=== PATIENT | female | born 1970 | race Caucasian/White ===

== ENCOUNTER 2019-06-13 08:10 | Outpatient (CLI) | payer OTHER, SELFPAY ==
--- NOTE | ~2019-06-13 | MM_ITS ---
EXAMINATION: MM screening isidro BI w valdo HISTORY: Screening mammogram TECHNIQUE: Craniocaudal and mediolateral oblique 3-D tomosynthesis images were obtained and synthetic 2-D images were generated. CAD analysis was submitted and interpreted. COMPARISON: 06/10/2018, 10/27/2016, 01/20/2015 bilateral digital screening mammogram examinations BREAST PARENCHYMAL COMPOSITION: There are scattered areas of fibroglandular density. FINDINGS: Stable mild bilateral fibroglandular asymmetry. There is no evidence of suspicious mass, ca lcification, or architectural distortion to suggest malignancy in either breast. There has been no mooney spicious interval change. IMPRESSION: 1. No mammographic evidence of malignancy. 2. Recommend routine screening mammography in one year. BI-RADS Category 2: Benign finding(s). Reviewed, dictated and finalized at location A. ANENT WAVER
== END 2019-06-13 08:11 | disposition home or self-care (01) ==
PROVIDERS: PCP Family Medicine; Visit Provider Family Medicine
DX: Z12.31 Encounter for screening mammogram for malignant neoplasm of breast (principal)
CPT/HCPCS: 77063; 77067

== ENCOUNTER → 2020-08-17 13:50 | Outpatient (CLI) | payer OTHER, SELFPAY ==
--- NOTE | ~2020-08-17 | MR_ITS ---
EXAMINATION: MR cervical spine wo con DATE: 08/17/2020 14:32 INDICATION: Cervical radiculopathy. TECHNIQUE: Magnetic resonance imaging (MRI) of the cervical spine was performed without intravenous c ontrast. Sequences included sagittal T2-weighted FSE, sagittal STIR FSE, sagittal T1-weighted FSE, ax ial MERGE, and axial T2-weighted FSE. COMPARISON: None FINDINGS: There is 4 degrees dextrocurvature of cervical spine. There is hypolordosis of cervical spi ne. There is 2 mm retrolisthesis of C5 on C6. Vertebral body heights are normal. There is mildly decr eased disc height at C5-C6. The spinal cord signal intensity is normal. The following disc levels are specifically discussed: C2-C3: The disc does not extend beyond the endplate margin. There is no uncovertebral joint osteoarth ritis. There is severe bilateral facet joint osteoarthritis. There is mild bilateral neural foraminal stenosis. There is no central canal stenosis. C3-C4: The disc does not extend beyond the endplate margin. There is no uncovertebral joint osteoarth ritis. There is mild bilateral facet joint osteoarthritis. There is no neural foraminal stenosis. The re is no central canal stenosis. C4-C5: There is a central protrusion. There is no uncovertebral joint osteoarthritis. There is mild b ilateral facet joint osteoarthritis. There is mild left neural foraminal stenosis. There is mild cent ral canal stenosis. C5-C6: The disc is bulging. There is mild right and severe left uncovertebral joint osteoarthritis. T here is moderate right and severe left facet joint osteoarthritis. There is mild bilateral neural for aminal stenosis. There is mild central canal stenosis. C6-C7: The disc does not extend beyond the endplate margin. There is no uncovertebral joint osteoarth ritis. There is moderate right and severe left facet joint osteoarthritis. There is mild bilateral ne ural foraminal stenosis. There is no central canal stenosis. C7-T1: The disc does not extend beyond the endplate margin. There is no uncovertebral joint osteoarth ritis. There is mild right and moderate left facet joint osteoarthritis. There is mild left neural fo raminal stenosis. There is no central canal stenosis. IMPRESSION: 1. Mild cervical spondylosis. Reviewed, dictated and finalized at location B.
== END ==
PROVIDERS: PCP Family Medicine; Visit Provider Nurse Practitioner Family
DX: M47.23 Other spondylosis with radiculopathy, cervicothoracic region (principal); M48.03 Spinal stenosis, cervicothoracic region
CPT/HCPCS: 72141

== ENCOUNTER 2020-10-04 08:46 | Outpatient (CLI) | payer OTHER, SELFPAY ==
--- NOTE | ~2020-10-04 | MM_ITS ---
EXAMINATION: MM screening isidro BI w valdo HISTORY: Screening TECHNIQUE: Craniocaudal and mediolateral oblique 3-D tomosynthesis images were obtained and synthetic 2-D images were generated. CAD analysis was submitted and interpreted. COMPARISON: Comparison to multiple prior studies sequentially, with oldest reviewed study dated 06/27. BREAST PARENCHYMAL COMPOSITION: There are scattered areas of fibroglandular density. FINDINGS: There is a focal asymmetry medial aspect of the right breast on CC view. The left breast is stable without evidence for malignancy. IMPRESSION: 1. No focal right breast asymmetry on CC view. 2. Additional spot compression and mediolateral views with possible follow-up breast ultrasound recom mended. BI-RADS Category 0: Incomplete: Needs additional imaging evaluation. Reviewed, dictated and finalized at location A. IMPRESSION: 1. No focal right breast asymmetry on CC view. 2. Additional spot compression and mediolateral views with possible follow-up b reast ultrasound recommended. BI-RADS Category 0: Incomplete: Needs additional imaging evaluation.
== END 2020-10-04 08:47 | disposition home or self-care (01) ==
LOC: ANHIMG 08:51
PROVIDERS: PCP Family Medicine; Visit Provider Family Medicine
DX: Z12.31 Encounter for screening mammogram for malignant neoplasm of breast (principal); R92.8 Other abnormal and inconclusive findings on diagnostic imaging of breast
CPT/HCPCS: 77063; 77067

== ENCOUNTER 2020-11-01 11:21 | Outpatient (CLI) | payer OTHER, SELFPAY ==
--- NOTE | ~2020-11-01 | MM_ITS ---
EXAMINATION: MM diagnostic mammo unilat RT HISTORY: Focal asymmetry reported in medial aspect of right breast on screening craniocaudal view of 10/04/2020 TECHNIQUE: Additional full field ML and spot craniocaudal 3-D tomosynthesis images of the right breas t were performed and synthetic 2-D images were generated. CAD analysis was submitted and interpreted. COMPARISON: 09/26/2020, 06/13/2019, 06/2018, 10/27/2016bilateral digital screening mammogram examinations FINDINGS: No suspicious mass, architectural distortion or suspicious new or enlarging opacities evide nt. IMPRESSION: 1. No mammographic evidence of malignancy. Stable right asymmetric fibroglandular stroma 2. Routine annual mammographic screening is recommended. BI-RADS Category 2: Benign finding(s). Reviewed, dictated and finalized at location A. IMPRESSION: 1. No mammographic evidence of malignancy. Stable right asymmetric fibroglandul ar stroma 2. Routine annual mammographic screening is recommended. BI-RADS Category 2: Benign finding(s).
== END 2020-11-01 11:22 | disposition home or self-care (01) ==
LOC: ANHIMG 11:25
PROVIDERS: PCP Family Medicine; Referring Provider Nurse Practitioner Obstetrics & Gynecology; Visit Provider Family Medicine
DX: R92.8 Other abnormal and inconclusive findings on diagnostic imaging of breast (principal)
CPT/HCPCS: 77065

== ENCOUNTER 2022-07-17 14:52 | Outpatient (CLI) | payer OTHER, SELFPAY ==
--- NOTE | ~2022-07-17 | MM_ITS ---
EXAMINATION: MM screening isidro BI w valdo HISTORY: Screening mammogram TECHNIQUE: Craniocaudal and mediolateral oblique 3-D tomosynthesis images were obtained and synthetic 2-D images were generated. CAD analysis was submitted and interpreted. COMPARISON: 11/01/2020 diagnostic right mammogram 09/26/2020, 06/13/2019, 06/2018 bilateral screening mammogram examinations BREAST PARENCHYMAL COMPOSITION: There are scattered areas of fibroglandular density. FINDINGS: There is no evidence of suspicious mass, calcification, or architectural distortion to sugg est malignancy in either breast. There has been no suspicious interval change. IMPRESSION: 1. No mammographic evidence of malignancy. 2. Recommend routine screening mammography in one year. BI-RADS Category 1: Negative Reviewed, dictated and finalized at location A.
== END 2022-07-17 14:53 | disposition home or self-care (01) ==
LOC: ANHIMG 14:55
PROVIDERS: PCP Family Medicine; Visit Provider Nurse Practitioner Obstetrics & Gynecology
DX: Z12.31 Encounter for screening mammogram for malignant neoplasm of breast (principal)
CPT/HCPCS: 77063; 77067

== ENCOUNTER 2023-03-15 05:58 | Day surgery (SDC) | payer OTHER, SELFPAY ==
[2023-02-09 09:03] VITALS: BMI 26.5
[2023-02-27 12:25] VITALS: BMI 26.4
--- NOTE | 2023-03-14 16:59 | WPDANESEPPF ---
Anes - Initial Pre Proc Eval Procedure: Operation Date: 03/15/23 07:30 Proposed Procedures p Screening Colonoscopy - Radu Servin MD Date/Time: 03/14/23 16:59 Surgeon: Radu Servin MD Pre Op Diagnosis: Neoplasm Screening Patient Data Age: 52 Gender: F Height: 1.65 m Weight: 72 kg Allergies Allergy/AdvReac Type Severity Reaction Status Date / Time No Known Allergies Allergy Verified 03/15/23 06:20 Home Medications Medication Instructions Recorded Confirmed Type calcium carbonate 600 mg calcium 600 mg PO DAILY 10/04/22 03/15/23 History (1,500 mg) tablet (Calcium) cholecalciferol (vitamin D3) 25 25 mcg PO DAILY 10/04/22 03/15/23 History mcg (1,000 unit) capsule multivitamin 1 tablet PO DAILY 10/04/22 03/15/23 History Patient hx anesthesia problems: none Family hx anesthesia problems: none Results Review: All pre-operative results and documents have been reviewed as part of the pre-operative evaluation. PENDING SALE TO [facility] Past Medical History Medical History (Updated 07/17/22 @ 17:18 by Иван Oh MD) Abnormal mammogram of right breast (~10/04/20) asymmetric focus right breast on 10/04/2020 Abnormal x-ray of cervical spine Anxiety B12 deficiency BMI 26.0-26.9,adult Breast cancer screening normal mammogram 07/17/2022. Cervical radicular pain Colon cancer screening Hyperlipidemia UTI (urinary tract infection) Family History Family History Father Acute myocardial infarction, Onset Age: 68 Social History Social History Smoking status: Never smoker Alcohol intake: current Drinks per week: 2 Substance use: never Substance use type: does not use Lack of Transportation: No Lack of Food: Never True Current Housing: I Have Housing Concerned About Future Housing: No Difficulty Paying Gas/Electric Bills: No Difficulty Paying for Meds: No Currently Unemployed: No Education: Master's Degree or Higher Difficulty w/ Childcare or Family Care: No Living arrangements: with family Spiritual care concerns: No Anes - Eval Final PreProcedure Day of Procedure 12/06/23 16:59 Patient weight: overweight Heart: regular rate and rhythm Lungs: clear to auscultation Airway: Mallampati scale class II Neurological: alert and oriented Last oral intake: >/= 8 hours ASA classification: II Emergent: no Anesthetic plan: proceed Anesthesia type and monitoring: general GIVS and standard monitoring Results Review: All pre-operative results and documents have been reviewed as part of the pre-operative evaluation. Informed Consent: The patient's anesthetic plan and its attendant risks and benefits were discussed with the patient/family/POA. Questions were solicited and answers provided to the satisfaction of the patient/family/POA.
[2023-03-15 06:22] VITALS: BP 140/96; PULSE 98; RESP 16; TEMP 36.6; O2SAT 98; BMI 27.1
[2023-03-15] MEDS: LACTATED RINGERS 1,000 ML 150 ML IV CONT (06:33)
--- NOTE | 2023-03-15 07:26 | PM.HPGS ---
History of Present Illness History of Present Illness Consent: Risks, benefits, and alternatives have been discussed and questions answered. Patient agrees to proceed with procedure. Chief complaint: Neoplasm Screening Narrative: Jaja Pelayo is a 52 year old female here for first screening colonoscopy Review of Systems Constitutional: Constitutional: Denies headache(s) and Denies weakness Eyes: Eyes: Denies blurry vision ENT: Reports Normal hearing present, Denies headache(s) and Denies neck pain Cardiovascular: Cardiovascular: Denies chest pain and Denies dyspnea Respiratory: Respiratory: Denies dyspnea Gastrointestinal: Gastrointestinal: Reports no additional gastrointestinal complaints Genitourinary: Genitourinary: Denies dysuria Musculoskeletal: Musculoskeletal: Denies neck pain Integumentary/Breasts: Skin/Breast: Denies dry skin Neurologic: Reports Normal hearing present, Denies headache(s) and Denies weakness Psychiatric: Psychiatric: Denies anxiety Endocrine: Endocrine: Denies change in body appearance Hematologic/Lymphatic: Hematologic/Lymphatic: Denies easy bleeding Allergic/Immunologic: Allergic/Immunologic: Denies urticaria PMFSH Past Medical History Medical History (Updated 07/17/22 @ 17:18 by Иван Oh MD) Abnormal mammogram of right breast (~10/04/20) asymmetric focus right breast on 10/04/2020 Abnormal x-ray of cervical spine Anxiety B12 deficiency BMI 26.0-26.9,adult Breast cancer screening normal mammogram 07/17/2022. Cervical radicular pain Colon cancer screening Hyperlipidemia UTI (urinary tract infection) Family History Family History Father Acute myocardial infarction, Onset Age: 68 Social History Social History Smoking status: Never smoker Alcohol intake: current Drinks per week: 2 Substance use: never Substance use type: does not use Lack of Transportation: No Lack of Food: Never True Current Housing: I Have Housing Concerned About Future Housing: No Difficulty Paying Gas/Electric Bills: No Difficulty Paying for Meds: No Currently Unemployed: No Education: Master's Degree or Higher Difficulty w/ Childcare or Family Care: No Living arrangements: with family Spiritual care concerns: No Meds Home Medications and Allergies Home Medications Medication Instructions Recorded Confirmed Type calcium carbonate 600 mg calcium 600 mg PO DAILY 10/04/22 03/15/23 History (1,500 mg) tablet (Calcium) cholecalciferol (vitamin D3) 25 25 mcg PO DAILY 10/04/22 03/15/23 History mcg (1,000 unit) capsule multivitamin 1 tablet PO DAILY 10/04/22 03/15/23 History Allergies Allergy/AdvReac Type Severity Reaction Status Date / Time No Known Allergies Allergy Verified 03/15/23 06:20 Vital Signs Vital Signs - 24 hr 03/15/23 06:22 Temperature 97.8 F Pulse Rate 98 Respiratory Rate 16 Blood Pressure 140/96 H Pulse Oximetry 98 Oxygen Delivery Room Air Exam Const: General: comfortable and no acute distress HENMT: Face/Nose/Sinus: Normal nares present Eyes: General: appearance normal, both eyes and all related structures Neck: Neck: no JVD Resp: Auscultation: clear to auscultation bilaterally Cardio: Rate: regular rate Rhythm: regular rhythm GI: Inspection: non-distended GI Palp: Yes Soft to palpation Skin: General skin exam: normal color Neuro: General: gait normal Speech: normal speech Extrem: General: normal to inspection Psych: Mental Status: mental status grossly normal Assessment and Plan Assessment and plan (1) Colon cancer screening: Code(s): Z12.11 - Encounter for screening for malignant neoplasm of colon Status: Acute Assessment and Plan: colonoscopy
[2023-03-15 07:44] VITALS: BP 110/64; PULSE 81; RESP 16; O2SAT 96
[2023-03-15 07:54] VITALS: BP 103/71; PULSE 83; RESP 18; O2SAT 97
[2023-03-15 08:04] VITALS: BP 102/78; PULSE 75; RESP 18; O2SAT 98
--- NOTE | 2023-03-15 12:20 | WPDANESPN ---
Anes - Prog Note Post-Op Date/Time: 03/15/23 12:20 Cardiovascular status: normal Respiratory status: normal Airway patency: baseline Mental status: baseline Post-Op hydration status: normal Vital Signs: Last Vital Signs Temp 36.6 C 03/15/23 06:22 Pulse 75 03/15/23 08:04 Resp 18 03/15/23 08:04 BP 102/78 03/15/23 08:04 Pulse Ox 98 03/15/23 08:04 O2 Del Method Room Air 03/15/23 08:04 Pain Score (VAS): 0 I/O: Intake & Output 03/14/23 03/15/23 03/15/23 23:59 07:59 15:59 Intake Total 400 Balance 400 Post-procedural complaints: none Patient Feedback: Patient satisfied with anesthetic care. Other Findings: Patient vital signs back to baseline. Patient denies nausea and vomiting. Patient's pain under control. Patient OK for discharge.
== END 2023-03-15 08:16 | disposition home or self-care (01) ==
PROVIDERS: PCP Family Medicine; Visit Provider Internal Medicine Gastroenterology
PROC: 0DJD8ZZ Inspection of Lower Intestinal Tract, Via Natural or Artificial Opening Endoscopic (ICD-10-PCS; CPT 45378; principal; 2023-03-15 07:30)
DX: Z12.11 Encounter for screening for malignant neoplasm of colon (principal)
CPT/HCPCS: 45378

== ENCOUNTER 2023-04-25 19:34 | Emergency (ER) | payer OTHER, SELFPAY ==
--- NOTE | 2023-04-25 19:36 | ED.URI ---
HPI - URI/Sore Throat General Chief Complaint: Upper Respiratory Infection Stated Complaint: COUGH Time Seen by Provider: 04/25/23 19:36 Source: patient and RN notes reviewed History of Present Illness HPI Narrative: Patient is a 52-year-old female who presents to urgent care with complaints of cough, congestion, runny nose. Patient states her symptoms started last with a splitting headache which since improved. Patient states that over the last 24 hours she developed a cough. Denies any shortness of breath, wheezing or productive cough. States that her throat is only sore from coughing. Denies any fever, ear pain, nausea, vomiting. Patient has been taking Tylenol [id number] but nothing for the cough. No other acute complaints. No acute distress noted. Patient aware of the plan care. Some parts of this dictation were generated by voice recognition software and may contain typographical and/or grammatical inaccuracies. Related Data Home Medications Medication Instructions Recorded Confirmed calcium carbonate 600 mg calcium 600 mg PO DAILY 10/04/22 04/25/23 (1,500 mg) tablet (Calcium) cholecalciferol (vitamin D3) 25 25 mcg PO DAILY 10/04/22 04/25/23 mcg (1,000 unit) capsule multivitamin 1 tablet PO DAILY 10/04/22 04/25/23 Allergies Allergy/AdvReac Type Severity Reaction Status Date / Time No Known Allergies Allergy Verified 04/25/23 19:36 Review of Systems Review of Systems: CONSTITUTIONAL: Denies fever, chills, or sweats. EYES: Denies visual changes, redness, or discharge. ENT: Reports rhinorrhea and postnasal drainage CARDIOVASCULAR: Denies chest pain, palpitations, or edema. RESPIRATORY: Reports of harsh nonproductive cough without dyspnea GASTROINTESTINAL: Denies abdominal pain, nausea, vomiting, or diarrhea. GENITOURINARY: Denies dysuria or hematuria. SKIN: Denies rash or itching. MUSCULOSKELETAL: Denies back pain, joint pain, or myalgia. NEUROLOGIC: Denies headache, numbness, or weakness. All other systems reviewed are negative, except as documented in HPI. [facility] Past Medical History Medical History (Updated 04/25/23 @ 19:47 by RACHID Palacios) Abnormal mammogram of right breast (~10/04/20) asymmetric focus right breast on 10/04/2020 Abnormal x-ray of cervical spine Anxiety B12 deficiency BMI 26.0-26.9,adult Breast cancer screening normal mammogram 07/17/2022. Cervical radicular pain Colon cancer screening (03/15/23) normal colonoscopy 03/15/2023 with recheck in 10 years. Hyperlipidemia UTI (urinary tract infection) Family History Family History Father Acute myocardial infarction, Onset Age: 68 Social History Social History Smoking status: Never smoker Alcohol intake: current Drinks per week: 2 Substance use: never Substance use type: does not use Lack of Transportation: No Lack of Food: Never True Current Housing: I Have Housing Concerned About Future Housing: No Difficulty Paying Gas/Electric Bills: No Difficulty Paying for Meds: No Currently Unemployed: No Education: Master's Degree or Higher Difficulty w/ Childcare or Family Care: No Living arrangements: with family Spiritual care concerns: No Comments At the time of my signature, I reviewed and agree with the nursing past medical, surgical, social, and family history. There is no relevant family history pertinent to the patient complaint. Exam Narrative: GENERAL: This is a well-nourished, well-developed patient, in no apparent distress. HEAD: normocephalic, atraumatic. EYES: PERRL. Sclera clear/white. Vision is grossly intact. EARS: External ears normal, auditory canals clear and without drainage, TMs normal without perforation. Hearing grossly intact. NOSE: External nose normal with no obvious nasal discharge, nares without redness, no rhin
[2023-04-25 19:43] VITALS: BP 132/68; PULSE 107; RESP 16; TEMP 36.5; O2SAT 98
== END 2023-04-25 19:47 | disposition home or self-care (01) ==
PROVIDERS: Emergency Provider Nurse Practitioner Family; PCP Nurse Practitioner Family
DX: R05.1 Acute cough (principal); E78.5 Hyperlipidemia, unspecified
CPT/HCPCS: 99213; G0463

== ENCOUNTER 2023-05-24 12:34 | Emergency (ER) | payer OTHER, SELFPAY ==
--- NOTE | ~2023-05-24 | XR_ITS ---
XR toe 1st RT min 2V DATE: 05/24/2023 12:58 INDICATION: Right first digit pain after being bent back 7 days ago TECHNIQUE: 3 views of right great COMPARISON: None FINDINGS: There is a linear oblique lucency consistent with recent fracture along the medial metaphys eal area and extending at least to the central physis area of the distal phalanx. No other fracture or dislocation is detected. Moderate osteoarthritic change at the first metatarsophalangeal joint. IMPRESSION: Linear oblique nondisplaced metaphyseal fracture of the distal phalanx Reviewed, dictated and finalized at location L. ER TENDER IMPRESSION: Linear oblique nondisplaced metaphyseal fracture of the distal phal anx
[2023-05-24 12:45] VITALS: BP 124/70; PULSE 69; RESP 18; TEMP 36.3; O2SAT 98
--- NOTE | 2023-05-24 12:55 | ED.LOWEXIN ---
HPI - Extremity Injury (Lower) General Chief Complaint: Extremity Injury, Lower Stated Complaint: rt great toe injury Time Seen by Provider: 05/24/23 12:55 Source: patient, RN notes reviewed and old records reviewed Mode of arrival: ambulatory Limitations: no limitations History of Present Illness HPI Narrative: 52 year old female who [facility] with complaints of injury to right great toe when she was running up the stairs and she bent her right great toe backwards 7 days ago. Patient reports that she has some increase in discomfort to tissue area under nail to mid dorsal aspect of right great toe with some redness noted. Patient reports that MD complaint: other (right great toe injury) Onset (ago): week(s) Severity scale (1-10): 8 Related Data Home Medications Medication Instructions Recorded Confirmed calcium carbonate 600 mg calcium 600 mg PO DAILY 10/04/22 04/25/23 (1,500 mg) tablet (Calcium) cholecalciferol (vitamin D3) 25 25 mcg PO DAILY 10/04/22 04/25/23 mcg (1,000 unit) capsule multivitamin 1 tablet PO DAILY 10/04/22 04/25/23 Allergies Allergy/AdvReac Type Severity Reaction Status Date / Time No Known Allergies Allergy Verified 04/25/23 19:36 Review of Systems Review of Systems: CONSTITUTIONAL: Denies fever, chills, or sweats. EYES: Denies visual changes, redness, or discharge. ENT: Denies rhinorrhea, congestion, sore throat, or otalgia. CARDIOVASCULAR: Denies chest pain, palpitations, or edema. RESPIRATORY: Denies cough or dyspnea. GASTROINTESTINAL: Denies abdominal pain, nausea, vomiting, or diarrhea. GENITOURINARY: Denies dysuria or hematuria. SKIN: Denies rash or itching. MUSCULOSKELETAL: Denies back pain, reports pain to the right great toe with swelling and bruising from injury one week ago, or myalgia. NEUROLOGIC: Denies headache, numbness, or weakness. PSYCHIATRIC: Denies anxiety or depression. All systems reviewed & are unremarkable except as noted in HPI and below PMFSH Past Medical History Medical History (Updated 05/24/23 @ 13:24 by Shi Tello NP) Abnormal mammogram of right breast (~10/04/20) asymmetric focus right breast on 10/04/2020 Abnormal x-ray of cervical spine Anxiety B12 deficiency BMI 26.0-26.9,adult Breast cancer screening normal mammogram 07/17/2022. Cervical radicular pain Colon cancer screening (03/15/23) normal colonoscopy 03/15/2023 with recheck in 10 years. Hyperlipidemia UTI (urinary tract infection) Family History Family History Father Acute myocardial infarction, Onset Age: 68 Social History Social History Smoking status: Never smoker Alcohol intake: current Drinks per week: 2 Substance use: never Substance use type: does not use Lack of Transportation: No Lack of Food: Never True Current Housing: I Have Housing Concerned About Future Housing: No Difficulty Paying Gas/Electric Bills: No Difficulty Paying for Meds: No Currently Unemployed: No Education: Master's Degree or Higher Difficulty w/ Childcare or Family Care: No Living arrangements: with family Spiritual care concerns: No Comments At time of signature, agree with nursing past medical, surgical, social and family history. There is no relevant family history pertinent to the presenting complaint Exam Narrative: GENERAL: Well-appearing, well-nourished, and in no acute distress. HEAD: Normocephalic, atraumatic. EYES: PERRLA and EOMI. ENT: Nares clear, no rhinorrhea or epistaxis. Mucous membranes moist.TM's normal throat pink with no swelling NECK: Supple.no lymphadenopathy CHEST: Clear to auscultation. No respiratory distress. SAO2 98% on room air HEART: Regular rate and rhythm. No murmur heard. Normal peripheral pulses. ABDOMEN: Soft, nontender, nondistended, normal active bowel sounds. EXTREMITIES: Normal range
== END 2023-05-24 13:45 | disposition home or self-care (01) ==
PROVIDERS: Emergency Provider Registered Nurse; PCP Family Medicine
DX: S92.424A Nondisplaced fracture of distal phalanx of right great toe, initial encounter for closed fracture (principal); X50.9XXA Other and unspecified overexertion or strenuous movements or postures, initial encounter; E78.5 Hyperlipidemia, unspecified
CPT/HCPCS: 73660; 99214; G0463

== ENCOUNTER 2024-02-14 16:25 | Outpatient (CLI) | payer OTHER, SELFPAY ==
--- NOTE | ~2024-02-14 | MM_ITS ---
EXAMINATION: MM screening isidro BI w valdo HISTORY: Screening TECHNIQUE: Craniocaudal and mediolateral oblique 3-D tomosynthesis images were obtained and synthetic 2-D images were generated. CAD analysis was submitted and interpreted. COMPARISON: Comparison to multiple prior studies sequentially, with oldest reviewed study dated 10/27. BREAST PARENCHYMAL COMPOSITION: Not dense: There are scattered areas of fibroglandular density. FINDINGS: There is no evidence of suspicious mass, calcification, or architectural distortion to sugg est malignancy in either breast. There has been no suspicious interval change. IMPRESSION: 1. No mammographic evidence of malignancy. 2. Recommend routine screening mammography in one year. BI-RADS Category 1: Negative Reviewed, dictated and finalized at location B. SUPPRESSION CAPTAIN
== END 2024-02-14 16:26 | disposition home or self-care (01) ==
PROVIDERS: PCP Family Medicine; Visit Provider Nurse Practitioner Family
DX: Z12.31 Encounter for screening mammogram for malignant neoplasm of breast (principal)
CPT/HCPCS: 77063; 77067

== ENCOUNTER → 2025-01-07 12:03 | Outpatient (CLI) | payer OTHER, SELFPAY ==
--- NOTE | ~2025-01-07 | XR_ITS ---
EXAMINATION: XR hip RT 2V w AP pelvis, 01/07/2025 12:54 CDT HISTORY: R10.31 - Right lower quadrant pain/numbness 1 month COMPARISON: No comparisons available. Findings: No acute fracture or malalignment. No significant degenerative changes. Soft tissues unremarkable. Impression: No acute fracture or malalignment. Reviewed, dictated and finalized at location P. Impression: No acute fracture or malalignment.
== END ==
LOC: EXPTRAD 12:06
PROVIDERS: PCP Nurse Practitioner Family; Referring Provider Nurse Practitioner Family; Visit Provider Nurse Practitioner Family
DX: R10.31 Right lower quadrant pain (principal)
CPT/HCPCS: 73502

== ENCOUNTER 2025-01-21 10:43 | Outpatient (CLI) | payer OTHER, SELFPAY ==
--- NOTE | ~2025-01-21 | MR_ITS ---
EXAMINATION: MR lumbar spine wo con DATE: 01/21/2025 11:15 INDICATION: Low back pain, unspecified. Right leg numbness and pain. TECHNIQUE: Magnetic resonance imaging (MRI) of the lumbar spine was performed without intravenous contrast. Sequences included sagittal T2-weighted FSE, sagittal T2-weighted FS FSE, sagittal T1-weighted FSE, and axial T2-weighted FSE. COMPARISON: None FINDINGS: There is 7 degrees levocurvature of lumbar spine. There is 3 mm retrolisthesis of L3 on L4. Vertebral body heights are normal. There is mildly decreased disc height from L1-L2 through L4-L5 and severely decreased disc height at L5-S1. The distal spinal cord signal intensity is normal. The conus medullaris is at L1. The following disc levels are specifically discussed: L1-L2: The disc is bulging. There is mild bilateral facet joint osteoarthritis. There is no neural foraminal stenosis. There is mild central canal stenosis. L2-L3: The disc is bulging. There is moderate bilateral facet joint osteoarthritis. There is mild bilateral neural foraminal stenosis. There is mild central canal stenosis. L3-L4: The disc is bulging. There is severe bilateral facet joint osteoarthritis. There is mild bilateral neural foraminal stenosis. There is mild central canal stenosis. L4-L5: The disc is bulging and has an annular fissure. There is severe bilateral facet joint osteoarthritis. There is mild bilateral neural foraminal stenosis. There is mild central canal stenosis. L5-S1: The disc is bulging and has an annular fissure. There is moderate bilateral facet joint osteoarthritis. There is moderate bilateral neural foraminal stenosis. There is mild central canal stenosis. IMPRESSION: 1. Severe lower lumbar spondylosis. Reviewed, dictated and finalized at location E.
== END 2025-01-21 10:44 | disposition home or self-care (01) ==
PROVIDERS: PCP Nurse Practitioner Family; Visit Provider Nurse Practitioner Family
DX: M47.816 Spondylosis without myelopathy or radiculopathy, lumbar region (principal); M79.604 Pain in right leg; R29.898 Other symptoms and signs involving the musculoskeletal system; R20.0 Anesthesia of skin; M54.31 Sciatica, right side
CPT/HCPCS: 72148

== ENCOUNTER 2025-02-19 15:54 | Outpatient (CLI) | payer OTHER, SELFPAY ==
--- OUTSIDE RECORDS SUMMARY | 2023-09-22 15:30 | XMS_ITS ---
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 Иван Oh Primary Care Provider Adrian García Unavailable [phone] ZZ-Migration, Provider Unavailable Unavailab le [facility] VISIT [facility] Encounter Medications Medication SIG (Take, Route, Frequency, Duration) Notes Start Date End Date Status Auvi-Q 0.3 MG/0.3ML 0.3 mg intramuscularly once; Duration: 1 dose(s), may repeat for recurrent or persistent symptoms after 10 minutes Active NASONEX 50 MCG/INH 2 SPRAY(S), AVOID NASAL SEPTUM EACH NOSTRIL ONCE A DAY; Duration: 30 DAY(S) *Please review for potential replacement for e-prescription and drug interaction check* Not-Taking Systane Preservative Free - 1 GTT IN EACH EYE 2 TIMES A DAY; Duration: 30 DAY(S) *Please review and pick correct strength-formula tion from [employer]pan options. If intended option is not shown, discontinue and re-order from Quick Search* Active PATANOL 0.1% 1 GTT IN EACH AFFECTED EYE 2 TIMES A DAY; Duration: 7 DAY(S) *Please review for potential replacement for e-prescription and drug interaction check* Not-Taking Cetirizine HCl 10 MG 1 tab(s) orally once a day; Duration: 0 Not-Taking NASAL WASHES N/A DIRECTED INTRANASALLY NEEDED; Duration: 30 *Please review for potential replacement for e-prescription and drug interaction check* Active ZyrTEC Allergy 10 MG 1 tab(s) orally once a day Active Pataday 0.2 % 1 gtt in each affected eye once a day; Duration: 10 day(s) Active Encounters Encounter Location Date Provider Diagnosis [address] [id number] 09/22/2023 Provider Edwin Anaphylactic reaction due to unspecified food, initial encounter T78.00XA ; Allergic rhinitis due to pollen J30.1 and Other chronic allergic conjunctivitis H10.45 Assessments Encounter Date Diagnosis (ICD Code) Assessment Notes Treatment Notes Treatment Clinical Notes Section Notes 09/22/2023 Anaphylactic reaction due to unspecified food, initial encounter (ICD-10 - T78.00XA) 09/22/2023 Allergic rhinitis due to pollen (ICD-10 - J30.1) 09/22/2023 Other chronic allergic conjunctivitis (ICD-10 - H10.45) Plan Of Treatment Medication Medication Name Sig Start Date Stop Date Notes Auvi-Q 0.3 MG/0.3ML 0.3 mg intramuscular ly once; Duration: 1 dose(s), may repeat for recurrent or persistent symptoms after 10 minutes Systane Preservative Free - 1 GTT IN EACH EYE 2 TIMES A DAY; Duration: 30 DAY(S) *Please review and pick correct strength-formulatio n from Medispan options. If intended option is not shown, discontinue and re-order from Quick Search* NASAL WASHES N/A DIRECTED INTRANAS ALLY NEEDED; Duration: 30 *Please review f or potential replacement for e-prescription and drug interaction check* ZyrTEC Allergy 10 MG 1 tab(s) orally onc e a day Pataday 0.2 % 1 gtt in each affect ed eye once a day; Duration: 10 day(s) Progress Notes * Jaja AVERYDOB:1970 (54 yo F)Acc No.[id number]:09/22/2023 Patient: Jaja GONZALES Provider: Freddy Price :1970 A ge:53 Y S ex:Female Date:09/22/2023 Address:[address] [place], [place] [id number] Pcp:Dr. Иван Oh Subjective: * Chief Complaints: * 1 . [facility]. * Medical History: * Medications: N ot-Taking/PRN Cetirizine HCl 10 MG Tablet 1 tab(s) orally once a day , Not- Taking/PRN PATANOL 0.1% SOLUTION 1 GTT IN EACH AFFECTED EYE 2 TIMES A DAY , Notes to Pharmacist: *Please review for potential replacement for e-prescription and drug interaction check*, Not-Taking/PRN NASONEX 50 MCG/INH NASAL INHALER 2 SPRAY(S), AVOID NASAL SEPTUM EACH NOSTRIL ONCE A DAY , Notes to Pharmacist: *Please review for potential replacement for e-prescription and drug interaction check* Objective: * Vitals: Assessment: * Assessment: 1. A naphylactic reaction due to unspecified food, initial encounter - T78.00XA (Primary) ? 2 . A llergic rhinitis due to pollen - J30.1 3 . O ther chronic allergic conjunctivitis - H10.45 Plan: * Treatment: 2. A llergic rhinitis due to pollen Start ZyrTEC Allergy Tablet, 10 MG, 1 tab(s), orally, once a day; C ontinue NASAL WASHES 1 QUART OF STERILIZED TAP WATER OR DISTILLED WATER, 1 TSP NACL, 1 PINCH OF BAKING SODA, N/A, DIRECTED, INTRANASALLY, NEEDED, 30, QS, Refills PRN, Notes to Pharmacist: *Please review for potential replacement for e-prescription and drug interaction check*. 3. O ther chronic allergic conjunctivitis Continue Pataday Solution, 0.2 %, 1 gtt, in each affected eye, once a day, 10 day(s); C ontinue Systane Preservative Free SOLUTION, -, 1 GTT, IN EACH EYE, 2 TIMES A DAY, 30 DAY(S), Notes to Pharmacist: *Please review and pick correct strength-formulation from [facility] options. If intended option is not shown, discontinue and re-order from Quick Search*. * Billing Information: * Visit Code: * Procedure Codes: * Electronic signature of Hannah FELIX-Migration on 02/19/2025 at 03:57 PM LARD RENDERER Sign off status: Pending * Provider: Freddy gibson Migration Date: 0 09/22/2023 Generated for Gabino eastman/Lexy/Jay Jay on: 1 04/21/2024 03:57 PM LARD RENDERER
--- OUTSIDE RECORDS SUMMARY | 2024-08-13 07:00 | XMS_ITS ---
Author Organization [facility] Address [address] [place], [place] [id number] Care Team Providers Care Chicken Picker Name Role Phone CHARY SINGLETARY Unavailable [phone] Иван Oh Unavailable Unavailable Allergies No Known Allergies REASON FOR VISIT dropped rock on foot, bunion Medications Medication SIG (Take, Route, Frequency, Duration) Notes Start Date End Date Status Simvastatin 10 MG Tablet 2 tablets in th e evening Orally Once a day Active Montelukast Sodium 10 MG Tablet 1 tablet Orally Once a day Active Social History Tobacco Use: Social History Observation Description Date Details (start date - stop date) Never Smoker NA - NA Social History Tobacco Use: Social Info Question Answer Notes Tobacco Control (Standard) Tobacco use: Nonsmoker Vital Signs Height 65 in 08/13/2024 Weight 157 lbs 08/13/2024 BMI 26.12 kg/m2 08/13/2024 Height-cm 165.1 cm 08/13/2024 Weight-kg 71.21 kg 08/13/2024 Encounters Encounter Location Date Provider Diagnosis [facility] [address] [place], [place] [id number] 08/13/2024 CHARY SINGLETARY Nondisplaced fracture of first metatarsal bone, right foot, initial encounter for closed fracture S92.314A ; Hallux valgus (acquired), right foot M20.11 and Pain in right foot M79.671 Assessments Encounter Date Diagnosis (ICD Code) Assessment Notes Treatment Notes Treatment Clinical Notes Section Notes 08/13/2024 Nondisplaced fracture of first metatarsal bone, right foot, initial encounter for closed fracture (ICD-10 - S92.314A) xrays reviewed. New xrays in 3 weeks to assess healing. Fracture Care: I discussed the nature and etiology of the injury to the patient and answered all questions. I discussed rest, immobilization, and time frame for healing. I explained that lack of compliance can lead to delayed healing or nonunion. She will reduce her walking schedule and wear her Asics or a supportive shoe and will come back to purchase a fracture shoe if pain and inflammation is not resolving. 08/13/2024 Hallux valgus (acquired), right foot (ICD-10 - M20.11) Bunion: Discussed various treatments with the patient regarding hallux abducto valgus deformity. Discussed conservative care consisting of padding, wider shoes, anti-inflammator ies, and orthotics. Discussed surgical treatment options as well. Reviewed xrays. 08/13/2024 Pain in right foot (ICD-10 - M79.671) CERON Protect, Rest, Ice, Compress, Elevate 3-6 weeks Patient was instructed to try an OTC topical pain reliever/anti-in flammatory such as Voltaren Gel, Aspercreme with Lidocaine, or Biofreeze etc over the affected areas. Spot test on hand or somewhere visible prior to starting to watch for possible rash/allergic reaction Plan Of Treatment Treatment Notes Assessment Notes Nondisplaced fracture of fir st metatarsal bone, right foot, initial encounter for closed fracture xrays reviewed. New xrays in 3 weeks to assess healing. Fracture Care: I discussed the nature and etiology of the injury to the patient and answered all questions. I discussed rest, immobilization, and time frame for healing. I explained that lack of compliance can lead to delayed healing or nonunion. She will reduce her walking schedule and wear her Asics or a supportive shoe and will come back to purchase a fracture shoe if pain and inflammation is not resolving. Hallux valgus (acquired), right foot Bun ion: Discussed various treatments with the patient regarding hallux abducto valgus deformity. Discussed conservative care consisting of padding, wider shoes, anti-inflammatories, and orthotics. Discussed surgical treatment options as well. Reviewed xrays. Pain in right foot CERON Protect, Rest, Ice, Compress, Elevate 3-6 weeks Patient was instructed to try an OTC topical pain reliever/anti-inflammatory such as Voltaren Gel, Aspercreme with Lidocaine, or Biofreeze etc over the affected areas. Spot test on hand or somewhere visible prior to starting to watch for possible rash/allergic reaction History and Physical Notes * HPI (History of Present Illness) Category Sub-Category Detail Notes Category Not es HPI New Complaint Patient presents for a new patient consultation., Patient complains of an issue to pain on the top of the right foot. Patient states that a large rock was dropped on the top of the foot. She had x-rays done before coming to her appointment. She states that the great toe was bruised and blue after it happened but has since returned to normal coloration. She states she is experiencing some numbness at the base of the great toe and soreness on the top lateral side of the foot. Patient also has a bunion on the right foot that is shown on her x-ray. She states that it causes her discomfort and is interested in an injection if that is suggested. , MA: mca Examination Category Sub-Category Detail Notes Category Not es Musculoskeletal Muscle Strength Muscle strength is 5/5 in regards to dorsiflexion, plantarflexion, inversion, and eversion in bilateral lower extremities. Pain on palpation right foot non-pitti ng edema distal dorsal foot with more localized edema over 1st mtpj with restricted ROM, painful on dorsiflexion. 1st MPJ There is hallux abdu [facility] valgus deformity right > left painful at end range of dorsiflexion and in dress shoes. Neurologic Gross sensation Gross sensation is intact to light touch. X-Ray Right Foot 3 views (AP, med ial oblique and lateral view) weight bearing right foot, Evidence of hairline fracture running from medial 1st met head to central first met head with out other osseous lesions., Xrays reveal an increased 1st IM angle, lateral deviation of the hallux, mild lateral displacement of the sesamoids and an enlarged medial prominence Vascular Dorsalis pedis pulse: bilateral, 2/4 Posterior tibial pulse: bilaterally, 2/4 Capillary refill: bilaterally, less th an 3 seconds Edema: right forefoot dorsa l foot non-pitting edema, more localized edema over 1st mtpj Progress Notes * Marisol AVERY:1970 (54 yo F)Acc No.[id number]:08/13/2024 Progress Notes Patient: Jaja Prather Provider: Barron SINGLETARY :1970 A ge:53 Y S ex:Female Date:08/13/2024 Address:[address] [place] [address] [id number] Subjective: * Chief Complaints: * D ropped rock on foot, bunion * HPI: H PI: New Complaint Freddy weston presents for a new patient consultation., Patient complains of an issue to pain on the top of the right foot. Patient states that a large rock was dropped on the top of the foot. She had x-rays done before coming to her appointment. She states that the great toe was bruised and blue after it happened but has since returned to normal coloration. She states she is experiencing some numbness at the base of the great toe and soreness on the top lateral side of the foot. Freddy weston also has a bunion on the right foot that is shown on her x-ray. She states that it causes her discomfort and is interested in an injection if that is suggested. , MA: [facility]. * ROS: G eneral / Constitutional: Patient denies f ever, chills, weakness. Freddy weston complains of p ain. M usculoskeletal: Patient complains of j oint stiffness, arthritis, bunions, joint pain. P eripheral Vascular: Patient complains of e sai right 1 st mtpj and lateral foot worse at end of day. S kin: Patient complains of d iscoloration, ecchymosis and redness dorsal right foot. N eurologic: Patient denies b alance difficulty, loss of strength, loss of use of extremity, Numbness. * Medical History: Arthritis Medical History Verified * Surgical History: Denies Past Surgical History. Surgical History verified. * Hospitalization/Major Diagno stic Procedure: Denies Past Hospitalization. Hospitalization Verified. * Family History: F ather: heart disease. M other: heart disease. F amily History Verified.. * Social History: T obacco Use: T obacco Control (Standard) T obacco use: N onsmoker. Social History Verified. * Medications: T akingMontelukast Sodium 10 MG Tablet 1 tablet Orally Once a day Simvastatin 10 MG Tablet 2 tablets in the evening Orally Once a day Medication List reviewed and reconciled with the patientTaking Montelukast Sodium 10 MG Tablet 1 tablet Orally Once a day Taking Simvastatin 10 MG Tablet 2 tablets in the evening Orally Once a day Medication List reviewed and reconciled with the patient * Allergies: N .K.D.A.yesAllergies Verified. Objective: * Vitals: S hoe Size: 8.5, Wt:157lbs, Wt-k.21 kg, Ht: 65 in, Ht-cm: 165.1 cm, BMI:26.12Index, Body Surface Area: 1.81. * Examination: M usculoskeletal: Muscle Strength M uscle strength is 5/5 in regards to dorsiflexion, plantarflexion, inversion, and eversion in bilateral lower extremities.. Pain on palpation r ight foot non-pitting edema distal dorsal foot with more l ocalized edema o jamie 1st mtpj with restricted ROM, painful on dorsiflexion. . 1st MPJ T here is hallux abducto valgus deformity right > left p ainful at end range of dorsiflexion and in dress shoes.. N eurologic: Gross sensation G ross sensation is intact to light touch..? V ascular: Dorsalis pedis pulse: b ilateral, 2/4. Posterior tibial pulse: b ilaterally, 2/4. Capillary refill: b ilaterally, less than 3 seconds. Edema: r ight forefoot dorsal foot non-pitting edema, m ore localized e sai over 1st mtpj. X -Ray: Right Foot 3 views (AP, medial oblique and lateral view) weight bearing right foot, Evidence of hairline fracture running from medial 1st met head to central first met head with out other osseous lesions., Xrays reveal an increased 1st IM angle, lateral deviation of the hallux, mild lateral displacement of the sesamoids and an enlarged medial prominence.? Assessment: * Assessment: 1. N ondisplaced fracture of first metatarsal bone, right foot, initial encounter for closed fracture - S92.314A (Primary) 2 . H allux valgus (acquired), right foot - M20.11? 3. P ain in right foot - M79.671 Plan: * Treatment: 2. H allux valgus (acquired), right foot Notes: Bunion: Discussed various treatments with the patient regarding hallux abducto valgus deformity. Discussed conservative care consisting of padding, wider shoes, anti-inflammatories, and orthotics. Discussed surgical treatment options as well. Reviewed xrays. 3. P ain in right foot Notes: CERON Protect, Rest, Ice, Compress, Elevate 3-6 weeks P atient was instructed to try an OTC topical pain reliever/anti-inflammatory such as Voltaren Gel, Aspercreme with Lidocaine, or Biofreeze etc over the affected areas. Spot test on hand or somewhere visible prior to starting to watch for possible rash/allergic reaction * Immunizations: Immunization record has been reviewed and updated. * Procedure Codes: 7 3630 X-RAY EXAM OF FOOT, Modifiers: RT Billing Information: * Visit Code: 65265 Office Visit, New Pt., Level 3. * Procedure Codes: 70438 X-RAY EXAM OF FOOT. 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
--- NOTE | ~2025-02-19 | MM_ITS ---
EXAMINATION: MM screening [facility] BI w valdo HISTORY: Screening TECHNIQUE: Craniocaudal and mediolateral oblique 3-D tomosynthesis images were obtained and synthetic 2-D images were generated. CAD analysis was submitted and interpreted. COMPARISON: Comparison to multiple prior studies sequentially, with oldest reviewed study dated 06/10/2018. BREAST PARENCHYMAL COMPOSITION: Not dense: There are scattered areas of fibroglandular density. FINDINGS: There is no evidence of suspicious mass, calcification, or architectural distortion to suggest malignancy in either breast. There has been no suspicious interval change. IMPRESSION: 1. No mammographic evidence of malignancy. 2. Recommend routine screening mammography in one year. BI-RADS Category 1: Negative Reviewed, dictated and finalized at location B. 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
--- OUTSIDE RECORDS SUMMARY | 2025-02-19 15:57 | XMS_ITS | Patient Health Record ---
Author Organization [facility] ([address]) Address [address] [place] [address] Care Team Providers Care Auto Striper Name Role Phone Dr. Иван Oh Primary Care Provider Adrian García Unavailable [phone] Marjorie Nolan Unavailable [phone] Allergies No Known Allergies Reason For Referral No Information Medications Medication SIG (Take, Route, Frequency, Duration) Notes Start Date End Date Status Simvastatin 20 MG TAKE 1 TABLET BY SAHRA TH EVERY DAY Oral; Duration: 30 Days Active Famotidine 40 MG 1 tablet Orally Once a day; Duration: 30 days Active Singulair 10 MG 1 tablet Orally Once a day Active Montelukast Sodium 10 MG 1 tablet Orally Once a day; Duration: 30 days Active Fluticasone Propionate 50 MCG/ACT 2 sprays in each nostril Nasally Twice a day; Duration: 30 days Active Cetirizine HCl 10 MG 1 tablet Orally Onc e a day; Duration: 30 days Active EPINEPHrine 0.3 MG/0.3ML as directed Inj ection as needed; Duration: 30 days 03/11/2024 Active Problems Problem Type SNOMED Code ICD Code Onset Dates Problem Status W/U Status Risk Notes Problem Chronic allergic conjunctivitis (14596512) Chronic allergic conjunctivitis NOS (372.14) Active confirmed Problem Allergic rhinitis due to allergen (84740262) Allergic rhinitis due to allergen (477.8) Active confirmed Problem Chronic allergic conjunctivitis (19780164) Other chronic allergic conjunctivitis (H10.45) Active confirmed Problem Allergic rhinitis caused by pollen (disorder) (77660191) Allergic rhinitis due to pollen (J30.1) Active confirmed Problem Allergic rhinitis caused by pollen (disorder) (06257710) Allergic rhinitis due to pollen (J30.1) Active confirmed Problem Allergic rhinitis caused by animal hair and dander (905037289057350) Allergic rhinitis due to animal (cat) (dog) hair and dander (J30.81) Active confirmed Problem Allergic rhinitis (92523218) Other allergic rhinitis (J30.89) Active confirmed Problem Allergic rhinitis (78359037) Other allergic rhinitis (J30.89) Active confirmed Problem Vomiting (495322177) Vomiting, unspecified (R11.10) Active confirmed Problem Flushing (01854216) Flushing (R23.2) Active confirmed Problem Allergic rhinitis caused by animal hair and dander (799221583044285) Allergic rhinitis due to animal (cat) (dog) hair and dander (J30.81) Active confirmed Problem Food anaphylaxis (84650114) Anaphylactic reaction due to unspecified food, initial encounter (T78.00XA) Active confirmed Problem Chronic allergic conjunctivitis (89058175) Other chronic allergic conjunctivitis (H10.45) Active confirmed Vital Signs Oximetry 96 % 03/10/2024 Blood pressure diastolic 70 mm Hg 03/10/2024 Height 65.5 in 03/10/2024 Blood pressure systolic 104 mm Hg 03/10/2024 Weight 161 lbs 03/10/2024 BMI 26.38 kg/m2 03/10/2024 Encounters Encounter Location Date Provider Diagnosis [facility] [address] [address] 03/10/2024 Adrian Sarabia Allergic rhinitis du e to pollen J30.1 ; Vomiting, unspecified R11.10 ; Allergic rhinitis due to animal (cat) (dog) hair and dander J30.81 ; Other allergic rhinitis J30.89 and Other chronic allergic conjunctivitis H10.45 [facility] [address] [address] 09/04/2024 Marjorie Nolan [address] [address] 06/24/2024 Adrian Sarabia Vomiting, unspecifie d R11.10 Assessments Encounter Date Diagnosis (ICD Code) Assessment Notes Treatment Notes Treatment Clinical Notes Section Notes 03/10/2024 Allergic rhinitis due to pollen (ICD-10 - J30.1) Ofelia clearly suffers from atopic disease based upon our prior skin testing and clinical history. Accordingly, we have introduced a new, aggressive medication regimen, discussed nasal washes and allergy-specific avoidance measures. Consider repeat SPT base on timeframe sine last obtained. Happy with currnent control 03/10/2024 Vomiting, unspecified (ICD-10 - R11.10) Ofelia initially presented in 2016 for recurrent episodes of flushing, vomiting, and diarrhea after eating certain meals despite eating a non-restricted diet. Symptoms would resolve after immediately after vomiting/diarrhea . At the time, tryptase was noted to be WNL and extensive ImmunoCAPs were obtained to multiple foods and spices; all of which were undetectable. Since then, when has been asymptomatic where this past Summer, she was eating fries and buffalo chicken in [place] when she experienced throat tightness, vomiting, and diarrhea. This resolved after vomiting immediately. She has had 2 other similar episodes since, one with only diarrhea. Again, she has had all associated food since without issue. At this point, this is unclear if there is an underlying mast cell condition. Prior normal work-up makes this less likely. We did obtain a new baseline Tryptase level, also WNL. Of note, she has drank alcohol in each one of these episodes between, been, wine, and spirits. This could be in part due to direct mast cell degranulation from alcohol consumption as she has drank alcohol numerous times without issue. She is currently on trial of Zyrtec and Pepcid on top on [facility] without breakthrough. At this point, would consider mast cell degranulation due to alcohol vs food intolerance vs IBS as potential DDX based on results. She reports active flushing to her neck but not appreciable today. Would consider Tryptase in the setting of episode to rule-out histamine-mediate d response. Labs sent today. Given plausible deniability of these reactions, plan on keeping AIE on hand at all times. Plan to hold Pepcid for the time being. Return in 6 months for E&M 06/24/2024 Vomiting, unspecified (ICD-10 - R11.10) 03/10/2024 Allergic rhinitis due to animal (cat) (dog) hair and dander (ICD-10 - J30.81) Follow allergen avoidance, meds and consider SCIT as an adjunctive treatment to current regimen 03/10/2024 Other allergic rhinitis (ICD-10 - J30.89) Follow allergen avoidance, meds and consider SCIT as an adjunctive treatment to current regimen 03/10/2024 Other chronic allergic conjunctivitis (ICD-10 - H10.45) Given ocular signs and symptoms I encouraged allergy avoidance measures and meds as above. If symptoms persist, consider adding additional medications including intraocular antihistamine/mas t cell stabilizer, PRN and consider SCIT as an adjunctive measure Plan Of Treatment Pending Test Test Name Order Date -Tryptase ([id number]) 03/10/2024 Insurance Providers Payer Name Payer Address Payer Phone Subscriber Number Group Number Insured Name Patient Relationship to Insured Coverage Start Date Coverage End Date [facility] [address] [address] [place] [address] [id number] Jaja Pelayo Self - patient is the insured 4 Medical (General) History Medical History History ICD Code Hyperlipidemia, unspecified E78.5 Flushing undefined Anaphylactic reaction due to unspecified food, initial encounter Allergic rhinitis due to allergen Allergic rhinitis due to pollen Allergic rhinitis due to animal (cat) (d og) hair and dander Other allergic rhinitis Other chronic allergic conjunctivitis Surgical History Surgery Date(Month/Year) none Hospitalization History Reason Date(Month/Year) none
--- OUTSIDE RECORDS SUMMARY | 2025-02-19 15:57 | XMS_ITS | Clinical Summary ---
Author Organization 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 Gender Identity Not on file Sexual Orientation Not on file Plan of Treatment Upcoming Encounters Date Type Department Care Team (Late st Contact Info) Description 02/20/2025 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 Appointment [facility] [address] [place] [address] Cody Scott MD [address] [place] [phone] Health Maintenance Due Date Last Done Comments Cervical Cancer Screening Pa p Smear (Age 30 to 64) Every 3 Years 1970 Colorectal Cancer Screening Colonoscopy (10 Years) 1970 Annual Physical 1973 Hepatitis C 1988 DTaP, Tdap and Td Vaccines ( 1 - Tdap) 1989 Hepatitis B Vaccines (1 of 3 - 19+ 3-dose series) 1989 Cervical Cancer Screening Pa p with HPV Testing (Age 30 to 64) Every 5 Years 2000 Cervical Cancer Screening with HPV 2000 Mammogram Screening 2010 Pneumococcal Vaccine: 50+ Ye ars (1 of 1 - PCV) 2020 Zoster Vaccines (1 of 2) 2020 COVID-19 Vaccine (1 2024-2 6 season) 2024 Influenza Adult (#1) 2025 Hepatitis A Vaccines Aged Out No long er eligible based on patient's age to complete this topic Meningococcal B Vaccine Aged Out No l onger eligible based on patient's age to complete this topic Meningococcal Vaccine Aged Out No cecile chaka eligible based on patient's age to complete this topic RSV Immunizations Under 20 Months Aged Out No longer eligible based on patient's age to complete this topic Insurance [facility] Care Teams Contracts Paralegal Relationship Specialty Start Date End Date Karyn Romero APNP [address] [address] PCP - General Nurse Practitioner Family 02/16/25
--- OUTSIDE RECORDS SUMMARY | 2025-02-19 15:57 | XMS_ITS | Clinical Summary ---
Author Organization [facility] Address [facility] [place] [address] Care Team Providers Care Lithograph Press Feeder Name Role Phone Иван Oh MD Primary Care Provider [phone] Lizbeth Wetzel VETERINARY EPIDEMIOLOGIST Unavailable [phone]- [phone] Allergies No known active allergies Medications montelukast (SINGULAIR) 10 mg tablet Take 1 tablet (10 mg total) by mouth daily 02/06/20 25 Active CHOLECALCIFEROL , VITAMIN D3, ORAL daily 10/05/19 23 Active ascorbic acid (VITAMIN C ORAL) Take by mouth Active MULTIVITAMIN ORAL Take by mouth Active omega-3 fatty acids-fish oil 300-1,000 mg capsule Take 2 capsules (2 g total) by mouth daily Active CALCIUM ORAL Take by mouth Act mikala ascorbic acid/collagen hydr (COLLAGEN PLUS VITAMIN C ORAL) Take by mouth Active vitamin B complex capsule Take 1 capsule by mouth daily Active loratadine (CLARITIN) 10 mg tablet Take 1 tablet (10 mg total) by mouth daily Active nitrofurantoin monohydrate (MACROBID) 100 mg capsule TK 1 C PO BID 0 06/21/19 19 025 Discontinu ed(No longer taking - Do not display on AVS) ergocalciferol (VITAMIN D) 50,000 unit capsule ergocalciferol (vitamin D2) 50,000 unit capsule TK ONE C PO Q WEEK 025 Discontinu ed(No longer taking - Do not display on AVS) ergocalciferol (VITAMIN D) 50,000 unit capsule TK ONE C PO Q WEEK 0 08/15/19 19 Discontinu ed(No longer taking - Do not display on AVS) ALPRAZolam (XANAX) 0.5 mg tabletIndicatio ns:Anxiety Take 1 tablet (0.5 mg total) by mouth 3 (three) times a day as needed for anxiety 6 tablet 08/21/19 19 Discontinu ed(No longer taking - Do not display on AVS) diclofenac (CATAFLAM) 50 mg tabletIndicatio ns:Pain Take 1 tablet (50 mg total) by mouth 3 (three) times a day 30 tablet 12/10/19 25 Discontinu ed(No longer taking - Do not display on AVS) lidocaine-menth ol 4-1 % adhesive patch,medicated Apply 1 patch topically daily 12 patch 12/10/19 Discontinu ed(No longer taking - Do not display on AVS) methocarbamoL (ROBAXIN) 500 mg tablet Take 1 tablet (500 mg total) by mouth 2 (two) times a day 20 tablet 12/10/19 Discontinu ed(No longer taking - Do not display on AVS) Active Problems Problem Noted Date Diagnosed Date Abnormal mammogram of right breast 02/11/2025 Anxiety 02/11/2025 B12 deficiency 02/11/2025 Cervical radicular pain 02/11/2025 Chronic left-sided low back pain with left-sided sciatica 02/11/2025 Closed fracture of great toe of right foot 02/11 Hyperlipidemia 02/11/2025 Seasonal allergic rhinitis 02/11/2025 UTI (urinary tract infection) 02/11/2025 Vitamin D deficiency, unspecified 02/11/2025 Encounters Date Type Department Care Team Description 02/11/2025 12:18 PM ASSISTANT BOOKKEEPER - 02/11/2025 11:59 PM ASSISTANT BOOKKEEPER Hospital Encounter [facility] [address] [place] [address] Discharge Disposition: Discharge to home or self care 02/11/2025 11:40 AM ASSISTANT BOOKKEEPER Office Visit [facility] Medicine Orthopaedic Surgery [facility] [address] [place] [address] Isrrael Cotto MD Lumbar spine pain (Primary Dx); Lumbar radiculopathy; Chronic left-sided low back pain with left-sided sciatica 02/11/2025 11:15 AM ASSISTANT BOOKKEEPER - 02/11/2025 11:59 PM ASSISTANT BOOKKEEPER Hospital Encounter [facility] [address] [facility] [address] [place] [address] Lumbar spine pain Discharge Disposition: Discharge to home or self care 12/09/2024 12:41 PM CDT - 12/09/2024 5:04 PM CDT Emergency [facility] Emergency Department [address] [place] [address] Lumbar strain, initial encounter (Primary Dx) Discharge Disposition: Discharge to home or self care from Last 3 Months Medical History Medical History Date Comments Migraines Family History Medical History Relation Name Comments Heart disease Father Transient ischemic attack Mother Stroke Other Sibling Relation Name Status Comments Father Mother Other Sibling Alive Social History Tobacco Use Types Packs/Day Years Used Date Smoking Tobacco: Never Smokeless Tobacco: Never Alcohol Use Standard Drinks/Week Comments Yes 2 (1 standard drink = 0.6 oz pur e alcohol) week Personal Safety Answer Date Recorded Have you ever been in or are you currently in a harmful physical or emotional relationship or is someone making you feel afraid or unsafe? Denies 12/09/2024 Comments Unknown Sex and Gender Information Value Date Recorded Sex Assigned at Not on file Legal Sex Female 3:33 PM CDT Gender Identity Not on file Sexual Orientation Not on file Last Filed Vital Signs Vital Sign Reading Time Taken Comments Blood Pressure 125/81 12/09/2024 10:00 AM CDT Pulse 67 12/09/2024 10:00 AM CDT Temperature 36.9 C (98.5 F) 12/09/2024 10:00 AM CDT Respiratory Rate 15 12/09/2024 10:00 AM CDT Oxygen Saturation 97% 12/09/2024 10:00 AM CDT Inhaled Oxygen Concentration - - Weight 69.9 kg (154 lb) 02/11/2025 12:00 PM ASSISTANT BOOKKEEPER Height 162.6 cm (5' 4) 02/11/2025 12:00 PM ASSISTANT BOOKKEEPER Body Mass Index 26.43 02/11/2025 12:00 PM ASSISTANT BOOKKEEPER Plan of Treatment Health Maintenance Due Date Last Done Comments Breast Cancer Screening-Mammogram 1970 Cervical Cancer Screening 1970 Colon Cancer Screening-Colonoscopy 1970 Depression Screening 1970 Hepatitis C Screening 1970 DTaP/Tdap/Td Vaccine (1 - Tdap) 1981 Regular Well Visit/Exam 18-64 1988 Zoster Vaccine (1 of 2) 2020 Influenza Vaccine (#1) 2024 9, 02/21/2019, 05/06/2017, Additional history exists Hepatitis B Screening Completed 05/02/2010 , 11/15/2009, 10/15/2009 Pneumococcal vaccine <65 Aged Out No longer eligible based on patient's age to complete this topic Procedures Procedure Name Priority Date/Time Associated Diagnosis Comments NEURO MR OUTSIDE REFERENCE Routine 02/11/2025 12:18 PM ASSISTANT BOOKKEEPER XR SCOLIOSIS AP LAT Schedule Routine, Read Routine (OP Routine) 02/11/2025 11:49 AM ASSISTANT BOOKKEEPER Lumbar spine pain CT LUMBAR SPINE WO CONTRAST ED 12/09/2024 2:38 PM CDT EGFR STAT 12/09/2024 1:30 PM CDT DIFFERENTIAL AUTO STAT 12/09/2024 1:3 0 PM CDT URINALYSIS, MICROSCOPIC ONLY STAT 12/09/2024 1:30 PM CDT COMPREHENSIVE METABOLIC PANEL STAT 12/09/2024 1:30 PM CDT CBC WITH AUTO DIFFERENTIAL STAT 12/09/2024 1:30 PM CDT URINALYSIS AND REFLEX TO MICROSCOPIC AND CULTURE STAT 12/09/2024 1:30 PM CDT XR SPINE LUMBAR ROUTINE ED 12/09/2024 11:05 AM CDT from Last 3 Months Results * Neuro MR Outside Reference (02/11/2025 12:18 PM ASSISTANT BOOKKEEPER) Impressions [facility] - 02/11/2025 12:18 PM ASSISTANT BOOKKEEPER These images are for Reference purposes only and have not been reviewed by [facility]. There will be no report generated by a [facility] Radiologist. Narrative [facility] - 02/11/2025 12:18 PM ASSISTANT BOOKKEEPER EXAMINATION: Images For Reference Purposes Only Isrrael Cotto MD IMG MRI PROCEDURES F inal Result [facility] * XR Scoliosis Ap and Lateral (02/11/2025 11:49 AM ASSISTANT BOOKKEEPER) Anatomical Region Laterality Modality Spine N/A Computed Radiogr aphy 02/11/2025 12:0 1 PM ASSISTANT BOOKKEEPER Impressions 02/11/2025 12:01 PM ASSISTANT BOOKKEEPER 1. Moderate degenerative disc disease at L5-S1 with mild posterior sagittal imbalance. Electronically signed by: Emil Ravi MD Narrative 02/11/2025 12:01 PM ASSISTANT BOOKKEEPER EXAMINATION: XR SCOLIOSIS AP AND LATERAL HISTORY: lower back pain COMPARISON: 12/09/2024 FINDINGS: No scoliosis or coronal imbalance. No pelvic obliquity. Mild posterior sagittal imbalance. Intrauterine device is present. Moderate degenerative disc disease at L5-S1. Procedure Note Emil Ravi MD - 02/11/2025 EXAMINATION: XR SCOLIOSIS AP AND LATERAL HISTORY: lower back pain COMPARISON: 12/09/2024 FINDINGS: No scoliosis or coronal imbalance. No pelvic obliquity. Mild posterior sagittal imbalance. Intrauterine device is present. Moderate degenerative disc disease at L5-S1. IMPRESSION: 1. Moderate degenerative disc disease at L5-S1 with mild posterior sagittal imbalance. Electronically signed by: Emil Ravi MD Isrrael Cotto MD IMG XR PROCEDURES Fi nal Result * CT Lumbar Spine WO Contrast (12/09/2024 2:38 PM CDT) Anatomical Region Laterality Modality Spine N/A Computed Tomogra phy 12/09/2024 3:13 PM CDT Impressions 12/09/2024 3:13 PM CDT Degenerative changes of the lumbar spine as outlined above, with mild spinal canal and bilateral neural foraminal stenosis at L4-L5 and moderate bilateral neural foraminal stenosis at L5-S1. Electronically signed by: DO Chris Woods 12/09/2024 3:13 PM CDT EXAMINATION: CT of the lumbar spine without contrast HISTORY: Low back pain and radiculopathy. TECHNIQUE: CT of the lumbar spine was performed according to standard protocol without intravenous contrast. COMPARISON: Lumbar spine radiographs dated 12/09/2024. FINDINGS: Slight levocurvature of the lumbar spine. Trace retrolisthesis of L3 on L4. There is no acute fracture. The vertebral bodies are normal in height without compression fractures. Mild disc height loss at multiple levels. Severe disc height loss at L5-S1 with vacuum disc phenomenon at this level. Mild scattered atherosclerosis. L1-L2: No significant disc bulge. There is mild bilateral facet arthropathy. There is no neuroforaminal stenosis. There is no spinal canal stenosis. L2-L3: No significant disc bulge. There is mild bilateral facet arthropathy. There is no neuroforaminal stenosis. There is no spinal canal stenosis. L3-L4: Minimal disc bulge. There is mild bilateral facet arthropathy. There is no significant neuroforaminal stenosis. There is no spinal canal stenosis. L4-L5: Mild disc bulge and ligamentum flavum thickening. There is mild bilateral facet arthropathy. There is mild bilateral neuroforaminal stenosis. There is mild spinal canal stenosis. L5-S1: Posterior disc osteophyte complex. There is mild bilateral facet arthropathy. There is moderate bilateral neuroforaminal stenosis. There is no spinal canal stenosis. Procedure Note Nathaly Dillon, - 12/09/2024 EXAMINATION: CT of the lumbar spine without contrast HISTORY: Low back pain and radiculopathy. TECHNIQUE: CT of the lumbar spine was performed according to standard protocol without intravenous contrast. COMPARISON: Lumbar spine radiographs dated 12/09/2024. FINDINGS: Slight levocurvature of the lumbar spine. Trace retrolisthesis of L3 on L4. There is no acute fracture. The vertebral bodies are normal in height without compression fractures. Mild disc height loss at multiple levels. Severe disc height loss at L5-S1 with vacuum disc phenomenon at this level. Mild scattered atherosclerosis. L1-L2: No significant disc bulge. There is mild bilateral facet arthropathy. There is no neuroforaminal stenosis. There is no spinal canal stenosis. L2-L3: No significant disc bulge. There is mild bilateral facet arthropathy. There is no neuroforaminal stenosis. There is no spinal canal stenosis. L3-L4: Minimal disc bulge. There is mild bilateral facet arthropathy. There is no significant neuroforaminal stenosis. There is no spinal canal stenosis. L4-L5: Mild disc bulge and ligamentum flavum thickening. There is mild bilateral facet arthropathy. There is mild bilateral neuroforaminal stenosis. There is mild spinal canal stenosis. L5-S1: Posterior disc osteophyte complex. There is mild bilateral facet arthropathy. There is moderate bilateral neuroforaminal stenosis. There is no spinal canal stenosis. IMPRESSION: Degenerative changes of the lumbar spine as outlined above, with mild spinal canal and bilateral neural foraminal stenosis at L4-L5 and moderate bilateral neural foraminal stenosis at L5-S1. Electronically signed by: Nathaly Rodriguez DO Sarita WILLIS IMG CT PROCEDURES Final Resul t * eGFR (12/09/2024 1:30 PM CDT) eGFR >90 >=60 mL/min/1. 73 m2 Comment: Interpretive Data Reference Interval Normal >/= 90 mL/min/1.73m2 Mildly decreased* 60 - 89 mL/min/1.73m2 Mildly to moderately decreased 45 - 59 mL/min/1.73m2 Moderately to severely decreased 30 - 44 mL/min/1.73m2 Severely decreased 15 - 29 mL/min/1.73m2 Kidney Failure < 15 mL/min/1.73m2 *Relative to young adult level Estimated glomerular filtration rate is determined by the 2020 CKD-EPI equation recommended by the National Kidney Foundation (A Unifying Approach to GFR Estimation: Recommendations of the NKF-ASK Task Force on Reassessing the Inclusion of Race in Diagnosing Kidney Disease, JASN 2020). The CKD-EPI equation should not be used for patients with unstable renal function and has not been validated in children and those over 70. Current interpretive data was last reviewed 2021. Blood 12/09/2024 1:30 PM CDT 12/09/2024 2:29 PM CDT us Sarita WILLIS LAB BLOOD ORDERABLES Final Re sult [facility] [address] Department [place] [address] * Differential, auto (12/09/2024 1:30 PM CDT) Neutrophil abs 5.97 1.50 - 6.50 K/cumm Imm gran abs 0.04 0.00 - 0.10 K/cumm [facility] Lymphocyte abs 2.54 0.80 - 3.30 K/cumm [facility] Monocyte abs 0.42 0.20 - 0.80 K/cumm [facility] Eosinophil abs 0.05 0.00 - 0.50 K/cumm [facility] Basophil abs 0.05 0.00 - 0.10 K/cumm [facility] Neutrophil pct 65.8 % [facility] Comment: Interpretive Data Percent cell count reference ranges are not reported, since discordance with absolute values may lead to misinterpretation of CBC data. Current Interpretive Data was last revised on 2017. Imm gran pct 0.4 % [facility] Comment: Interpretive Data Percent cell count reference ranges are not reported, since discordance with absolute values may lead to misinterpretation of CBC data. Current Interpretive Data was last revised on 2017. Lymphocyte pct 28.0 % [facility] Comment: Interpretive Data Percent cell count reference ranges are not reported, since discordance with absolute values may lead to misinterpretation of CBC data. Current Interpretive Data was last revised on 2017. Monocyte pct 4.6 % [facility] Comment: Interpretive Data Percent cell count reference ranges are not reported, since discordance with absolute values may lead to misinterpretation of CBC data. Current Interpretive Data was last revised on 2017. Eosinophil pct 0.6 % [facility] Comment: Interpretive Data Percent cell count reference ranges are not reported, since discordance with absolute values may lead to misinterpretation of CBC data. Current Interpretive Data was last revised on 2017. Basophil pct 0.6 % [facility] Comment: Interpretive Data Percent cell count reference ranges are not reported, since discordance with absolute values may lead to misinterpretation of CBC data. Current Interpretive Data was last revised on 2017. Blood 12/09/2024 1:30 PM CDT 12/09/2024 2:30 PM CDT Sarita WILLIS LAB BLOOD ORDERABLES Final Re sult [facility] [address] Department [place] [address] * (ABNORMAL) Urinalysis reflex to microscopic and culture Urine (12/09/2024 1:30 PM CDT) Color, ur Yellow Yellow Clarity, ur Clear Clear [facility] Specific gravity, ur 1.014 1.003 - 1.030 [facility] pH, urine 7.0 [facility] Comment: Interpretive Data U rine pH is affected by diet, medications, systemic acid-base disturbances, and renal tubular function. pH may affect urinary stone formation. For example, urine pH below 6.0 may help reduce the tendency for calcium phosphate stones and pH greater than 6.0 may reduce the tendency for uric acid stone formation. Source: [facility] Current Interpretive Data was last revised on 2017 Protein, ur ql Negative Negative [facility] Glucose, ur ql Negative Negative [facility] Ketones, ur Negative Negative [facility] Bilirubin, ur Negative Negative [facility] Blood, ur Negative Negative [facility] Urobilinogen, ur <2.0 <2.0 mg/dL [facility] Nitrite, ur Negative Negative [facility] Leukocyte esterase, ur 1+(A) Negative [facility] UA reflex comment Reflex to microscopic UA will be performed. [facility] Urine 12/09/2024 1:30 PM CDT 12/09/2024 1:38 PM CDT Sarita WILLIS LAB MICROBIOLOGY - GENERAL OR DERABLES Final Result Performing Organization Address [facility] Co de Phone Number YULISSA MARTINEZ [phone] Department [place] [address] * (ABNORMAL) CBC with auto differential (12/09/2024 1:30 PM CDT) WBC 9.07 3.80 - 9.90 K/cumm Hgb 13.3 11.9 - 15.5 g/dL [facility] Hct 40.4 35.6 - 45.5 % [facility] Plt 245 150 - 400 K/cumm [facility] MPV 10.4 9.1 - 12.3 fL [facility] RBC 4.16 3.90 - 5.20 M/cumm [facility] MCV 97.1(H) 81.3 - 96.4 fL [facility] MCH 32.0 27.1 - 33.3 pg [facility] MCHC 32.9 32.3 - 35.7 g/dL [facility] RDW CV 12.4 11.1 - 14.9 % [facility] RDW SD 44.0 35.7 - 48.1 fL [facility] NRBC abs 0.00 0.00 - 0.01 K/cumm [facility] Blood 12/09/2024 1:30 PM CDT 12/09/2024 2:30 PM CDT Sarita WILLIS LAB BLOOD ORDERABLES Final Re sult Performing Organization Address [facility] Co de Phone Number YULISSA [address] Department [facility] [place], [place] [id number] * (ABNORMAL) Urinalysis, microscopic only (12/09/2024 1:30 PM CDT) WBC, ur 0-5 0 - 5 /HPF RBC, ur 0-2 0 - 2 /HPF [facility] Epithelial cells, squamous, ur 1-5 0 - 5 /HPF [facility] Mucous, ur Present(A) [facility] Amorphous crystals, ur Trace(A) [facility] Culture Reflex Comment Reflex conditions for urine culture (WBC >10) not met. [facility] Urine 12/09/2024 1:30 PM CDT 12/09/2024 1:38 PM CDT us Sarita WILLIS LAB URINE ORDERABLES Edited R esult - Final [facility] [address] Department [place] [address] * (ABNORMAL) Comprehensive metabolic panel (12/09/2024 1:30 PM CDT) Sodium 143 135 - 145 mmol/L Potassium, pl 3.9 3.3 - 4.9 mmol/L [facility] Chloride 109 97 - 110 mmol/L [facility] CO2 20(L) 22 - 32 mmol/L [facility] Anion gap 14 2 - 15 mmol/L [facility] BUN 11 6 - 25 mg/dL [facility] Comment:Corrected result edwin led to Amanda Palomino RN in ED 12/11/2024 10:55:23 CDT EJD Creatinine 0.66 0.60 - 1.10 mg/dL [facility] Glucose 98 70 - 199 mg/dL [facility] Comment: Interpretive Data Fasting glucose >/= 126 mg/dl is diagnostic for diabetes. Fasting is defined as no caloric intake for at least 8 hours. Fasting glucose between 100 mg/dl to 125 mg/dl is diagnostic of prediabetes. In a patient with classic symptoms of hyperglycemia or hyperglycemic crisis, a random glucose >/= 200 mg/dl is diagnostic for diabetes. In the absence of unequivocal hyperglycemia, results should be confirmed by repeat testing. The classification and Diagnosis of Diabetes Diabetes Care 2021; 46: S19-S40. Current interpretive data was last revised 2022. Calcium 9.1 8.5 - 10.3 mg/dL [facility] Bilirubin, total 0.5 0.1 - 1.2 mg/dL [facility] Protein, pl 6.5 6.5 - 8.5 g/dL [facility] Albumin 4.1 3.5 - 5.0 g/dL [facility] Alk phos 99 40 - 130 Units/L [facility] ALT 19 7 - 45 Units/L [facility] AST 21 10 - 45 Units/L [facility] Blood 12/09/2024 1:30 PM CDT 12/09/2024 2:29 PM CDT Sarita WILLIS LAB BLOOD ORDERABLES Edited R esult - Final YULISSA [address] [facility] Department [place] [address] * XR Spine Lumbar 4 or More Views (12/09/2024 11:05 AM CDT) Anatomical Region Laterality Modality L-spine N/A Computed Radiogr aphy 12/09/2024 11:0 7 AM CDT Impressions 12/09/2024 11:07 AM CDT Mild degenerative changes. No fracture. Electronically signed by: Jaqueline Vilchis M.D. Narrative 12/09/2024 11:07 AM CDT EXAMINATION: XR SPINE LUMBAR 4 OR MORE VIEWS HISTORY: The patient is a 54-year-old female who presents with back pain. TECHNIQUE: 5 views including oblique views. FINDINGS: Alignment normal and no fracture or dislocation is seen. Small degenerative osteophytes are seen radiating anteriorly off the bodies of the lower lumbar vertebrae. There is marked narrowing of the disc space at the L5-S1 level with the remaining disc spaces and pedicles are intact. Sacroiliac joints normal. No pars defects seen. Procedure Note Jaqueline Vilchis MD - 12/09/2024 EXAMINATION: XR SPINE LUMBAR 4 OR MORE VIEWS HISTORY: The patient is a 54-year-old female who presents with back pain. TECHNIQUE: 5 views including oblique views. FINDINGS: Alignment normal and no fracture or dislocation is seen. Small degenerative osteophytes are seen radiating anteriorly off the bodies of the lower lumbar vertebrae. There is marked narrowing of the disc space at the L5-S1 level with the remaining disc spaces and pedicles are intact. Sacroiliac joints normal. No pars defects seen. IMPRESSION: Mild degenerative changes. No fracture. Electronically signed by: Jaqueline Vilchis M.D. Erica Jaramillo MD IMG XR PROCEDURES Final Resul t from Last 3 Months Insurance [facility]PPO Address: [place] [address] [facility]/PPO Address: [place] [address] Care Teams Lithograph Press Feeder Relationship Specialty Start Date End Date Иван Oh MD [address] [address] PCP - General Family Medicine 10/12/20 Lizbeth Wetzel NP [address] [address] Nurse Practitioner Nurse Practitioner 10/12/20
--- OUTSIDE RECORDS SUMMARY | 2025-02-19 15:57 | XMS_ITS | Data Portability ---
Author Organization [facility] Address [address] [place] [address] [place] [address] Care Team Providers Care Weather Stripper Name Role Phone JONO CRAIG Primary Care Provider [phone] Assessment Encounter Date Assessment Date Assessment LastModified by Organization Details LastModified Time 09/16/2019 09/16/2019 Annual gynecological exam performed. Patient will come back in a year unless there are new symptoms. [email or web address] Not available 09/16/2019 14:50:22 10/07/2020 10/07/2020 Annual gynecological exam performed. Patient will come back in a year unless there are new symptoms. Not available 09/29/2020 14:42:05 05/31/2022 05/31/2022 Annual gynecological exam performed. Patient will come back in a year unless there are new symptoms. Not available 05/31/2022 17:13:57 10/25/2023 10/25/2023 Annual gynecological exam performed. Patient will come back in a year unless there are new symptoms. Not available 10/25/2023 10:12:28 Plan of Treatment Reminders Order Date Submit Date Provider Last Modified By Organization Details Last Modified Time Details Appointments None recorded. Lab urinalysis , dipstick 2019 020 [facility], [address], [address], [place], [address], 0 20:32:55 Referral None recorded. Procedures None recorded. Surgeries None recorded. Imaging MAMMO, screening, digital, bilateral 2023 024 [facility] (Imaging), [address], [place], [address], 5 05:00:45 MAMMO, screening, digital, bilateral 2022 023 [facility] (Imaging), [address], [place], [address], 3 05:01:41 Medication Orders None recorded. Patient TargetsNo targets recorded. Patient Instructions Encounter Date Encounter Id Patient Instructions Last Modified By Organization Details Last Modified Time 05/31/2022 [id number] mammogram: about this test Not available 05/31/2022 17:17:45 Reason for Referral None Reported. Results Created Date Observation Date Name Description Value Unit Range Abnormal Flag Note LastModifiedBy Organization Detail LastModifiedTime 09/16/19 20 09/18/2019 pap, LB Pap test thin prep Negati ve for Intrae pithel ial Lesion or Malign ifeoma normal ACCES WILMA #: [id number] 55 [facility] e: Cervi edwin/E ndoce rvica l LMP: 05/10 Date Taken : 09/15 Speci men Type: ThinP rep Vial Date Repor alexander: 2019 Clini edwin Data: Cytot ech: ABDULAZIZ Islas ([facility] ) Date Repor alexander: 2019 Speci men Adequ acy: Satis facto ry for evalu ation Endoc ervic al/tr ansfo rmati on zone compo nent prese nt Gener al Categ oriza tion: NEGAT BROOK FOR INTRA EPITH ELIAL LESIO N OR MALGT COTTOCY This speci men has been tonio zed by the ThinP rep Imagi ng Syste m, an inter activ e compu ter syste m which ilene ts the lab in the scree marga of ThinP rep Pap Test slide s. Danayo wing imagi ng, the slide was revie wed by a Cytot dipak logis t and/o r Patho logis t. D N A A S S A Y S R E P O R T TEST NAME RESUL TS ----- ---- ----- -- HPV High Risk Scree n (TMA) ThinP rep Vial The human papil lomav irus (HPV) High Risk Scree n is an FDA-a pprov ed in-vi tro ampli fied nucle ic acid test for the quali tativ e detec tion of E6/E7 viral mRNA. Resul ts shoul d be corre lated with patie nt prese ntati on, histo ry, cervi edwin cytol ogy and other clini ediwn and labor atory findi ngs. See https ://[employer]/s ites/ defau lt/fi les 018-0 AW- 35332 _002_ 01.pd f for furth er infor matio n. Test perfo rmed by [employer], [address], [place] [address] , Rashaad Cordero ra, , Labor atory Direc tor. HPV High Risk *HPV NOT DETEC ALEXANDER (TYPE S 16, 18, 31, 33, 35, 39, 45, 51, 52, 56, 58, 59, 66, 68) *HPV: The human papil lomav irus (HPV) High Risk Scree n is an FDA-a pprov ed in-vi tro ampli fied nucle ic acid test for the quali tativ e detec tion of E6/E7 viral mRNA. Resul ts shoul d be corre lated with patie nt prese ntati on, histo ry, cervi edwin cytol ogy and other clini edwin and labor atory findi ngs. See https ://[facility]/s ites/ defau lt/fi -0 - 75101 _002_ 01.pd f for furth er infor matio n. Test perfo rmed by [employer], [facility], [address], [place] [address] , Rashaad Cordero ra, , Labor atory Direc tor. End of Repor t Techn ical servi junito provi ded by Assoc iated Patho logis [employer], d/[facility]/a [facility], [address] [place] [address] Adi De León MD, [facility]. Case revie wed and diagn osis rende red at [facility] iated Patho logis [employer], d/b/a [facility], [address] [place] [address] Adi De León MD, [facility]. CONFI DENTI AL Not Available [facility] ([facility]) [address], [place], [address], 09/18/2019 12:08:56 09/16/19 20 09/17/2019 HPV DNA, high- risk HPV high risk NOT DETECT ED normal Not Available 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 Locat ion: [place] Patho logy Recei refugio: 10/08 0200 First Scree n: Oksana Desir ret, CT Rescr een: Beech im, [place] , [place] Speci men: Scree marga Pap - Image d, Cervi x STATE MENT OF ADEQU ACY: Satis facto ry for evalu ation Trans forma tion zone compo nent prese nt FINAL DIAGN OSIS: Negat brook for Intra epith elial Lesio n or Malig brooklynn (NIL) Atrop hic cell patte rn Elect camelia hernandez lamont d by Beech im, [place] , [place] on 021 at 2:20 PM ----- ----- ----- ----- ----- ----- ----- ----- ----- ----- ----- ----- ----- ----- ----- ----- ----- ---- HPV RESUL TS: HPV mRNA E6/E7 : Posit brook - HPV mRNA Detec alexander HPV GENOT YPE 16 (FAN) : Not Detec alexander HPV GENOT YPE 18/45 (FAN) : Not Detec alexander NOTE: This high risk HPV mRNA assay detec ts fourt een high- risk HPV types (16, 18, 31, 33, 35, 39, 45, 51, 52, 56, 58, 59, 66, 68) witho ut diffe renti ation . This assay can diffe renti ate HPV 16 from HPV 18/45 , but does not diffe renti ate betwe en HPV 18 and HPV 45. A negat brook HPV 16, 18/45 genot ype assay resul t does not exclu de the possi bilit y of cytol ogic abnor malit ies or of futur e or under lying TOMMY 1, TOMMY 3 or cance r. CHART ABLE COMME NT: Note: This speci men was revie wed by a Cytot echno logis t and/o r Patho logis t (as indic ated in this repor t) after evalu ation using the Thinp rep Imagi ng Syste m. CLINI EDWIN INFOR MATIO N: Menst rual Statu s: LMP (if appli cable ): 001 Clini edwin Histo ry/Pr eviou s Pap: Type of Neopl silas (if appli cable ): Other Histo ry: Hormo paulette (if appli cable ): PAP EDUCA HEENA L NOTE: The Pap Test is a scree marga test with an inher ent false negat brook rate. Liqui d-bas e sampl ing may decre ase, but will not elimi nacho, false negat brook resul ts. A negat brook resul t does not precl ude the prese nce and/o r devel opmen t of disea se, since the prese nce of abnor mal cells in the sampl e depen ds on the locat ion of the lesio n and sampl ing techn ique. Fred nued regul ar scree marga is the best metho d of cance r preve ntion . If repor alexander cytol ogic findi ng do not corre late with physi edwin and/o r histo rical findi ngs, furth er inves tigat ion is recom aaron d, as clini dulce wiggins nted. 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 Elect camelia hernandez lamont d by Latonia Oliva on 2022 at 4:06 PM ----- ----- ----- ----- ----- ----- ----- ----- ----- ----- ----- ----- ----- ----- ----- ----- ----- ---- HPV RESUL TS: HPV mRNA E6/E7 : No HPV mRNA Detec alexander NOTE: This high risk HPV mRNA assay detec ts fourt een high- risk HPV types (16, 18, 31, 33, 35, 39, 45, 51, 52, 56, 58, 59, 66, 68) witho ut diffe renti ation . COMME NT: Note: This speci men was revie wed by a Cytot echno logis t and/o r Patho logis t (as indic ated in this repor t) after evalu ation using the Thinp rep Imagi ng Syste m. CLINI EDWIN INFOR MATIO N: Menst rual Statu s: LMP (if appli cable ): Clini edwin Histo ry/Pr eviou s Pap: Type of Neopl silas (if appli cable ): Signi fican t Clini edwin Findi ngs: Other Histo ry: Hormo paulette (if appli cable ): PAP EDUCA HEENA L NOTE: The Pap Test is a scree marga test with an inher ent false negat brook rate. Liqui d-bas ed sampl ing may decre ase, but will not elimi nacho, false negat brook resul ts. A negat brook resul t does not precl ude the prese nce and/o r devel opmen t of disea se, since the prese nce of abnor mal cells in the sampl e depen ds on the locat ion of the lesio n and sampl ing techn ique. Fred nued regul ar scree marga is the best metho d of cance r preve ntion . If repor alexander cytol ogic findi ng do not corre late with physi edwin and/o r histo rical findi ngs, furth er inves tigat ion is recom aaron d, as clini dulce warra nted. Not Available [facility] (Lab) [address], [place], [address], 06/06/2022 17:09:42 10/25/19 24 10/25/2023 IMAGE GUIDE D PAP AND HPV REGAR DLESS image guided Pap, HPV regardless of Pap result SEE RESULT S BELOW CASE REPOR T: Cytol ogy Gynec ologi edwin Repor t Case: [id number] Autho yojana pisano Provi darya: Mari Yeh, TONO Justice cted: 10/24 1041 Order ing Locat ion: [place] Patho miguel Ernandez refugio: 10/25 0630 First Frank n: Chuck Oliva , [place] Speci men: Frank gresham Pap - Image d, Cervi x STATE MENT OF ADEQU ACY: Satis facto ry for evalu ation Trans forma tion zone compo nent prese nt ----- ----- ----- ----- ----- ----- ----- ----- ----- ----- ----- ----- ----- ----- ----- ----- ----- ---- FINAL DIAGN OSIS: Negat brook for Intra epith elial Kami fraser or Rivka barnett (NIL) . Elect camelia so by Chuck Oliva , [place] on 2023 at 5:59 PM ----- ----- ----- ----- ----- ----- ----- ----- ----- ----- ----- ----- ----- ----- ----- ----- ----- ---- HPV RESUL TS: HPV mRNA E6/E7 : No HPV mRNA Detec alexander NOTE: This high risk HPV mRNA assay detec ts fourt een high- risk HPV types (16, 18, 31, 33, 35, 39, 45, 51, 52, 56, 58, 59, 66, 68) witho ut diffe renti ation . COMME NT: This speci men was revie wed by a Cytot echno logis t and/o r Patho logis t (as indic ated in this repor t) after evalu ation using the Thinp rep Imagi ng Syste m. CLINI EDWIN INFOR MATIO N: Menst rual Statu s: LMP (if appli cable ): Clini edwin Histo ry/Pr eviou s Pap: Type of Neopl silas (if appli cable ): Signi fican t Clini edwin Findi ngs: Other Histo ry: Hormo paulette (if appli cable ): PAP EDUCA HEENA L NOTE: The Pap Test is a scree marga test with an inher ent false negat brook rate. Liqui d-bas ed sampl ing may decre ase, but will not elimi nacho, false negat brook resul ts. A negat brook resul t does not precl ude the prese nce and/o r devel opmen t of disea se, since the prese nce of abnor mal cells in the sampl e depen ds on the locat ion of the lesio n and sampl ing techn ique. Fred nued regul ar scree marga is the best metho d of cance r preve ntion . If repor alexander cytol ogic findi ng do not corre late with physi edwin and/o r histo rical findi ngs, furth er inves tigat ion is recom aaron d, as clini dulce warra nted. Not Available [facility] (Lab) [address], [place], [address], 10/30/2023 19:02:35 10/13/19 21 MAMMO , scree marga, bilat eral No observ ation record ed. marti [address], [place], [address], 10/12/2020 16:28:16 Result Notes None recorded. 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 14:43:00 Screenin g for malignan t neoplasm of rectum Completed 201509/29/2020 Encounter for screening for malignant neoplasm of rectum;Pr actice ID: [id number] Adelaida Cleary [facility] 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 14:42:[address] Concept Completed 201609/29/2020 Encntr for general adult medical exam w/o abnormal findings; Recorded Elsewhere : No Locati on: [facility] So urce: EHR Chron ic: N Practic e ID: [id number] Bill able Time: 10:30:00 AM Adelaida Cleary [facility] 14:42:59 Clinical finding Completed 201609/29/2020 Presence of (intraute rine) contracep tive device;Re corded Elsewhere : No Locati on: [facility] So urce: EHR Chron ic: N Practic e ID: [id number] Bill able Time: 10:30:00 [facility] 14:42:50 Removal of intraute rine device Completed 201709/29/2020 Encounter for removal of intrauter ine contracep tive device;Pr actice ID: [id number] Adelaida marion [facility] 14:42:56 Insertio n of intraute rine contrace ptive device Completed 201709/29/2020 Encounter for insertion of intrauter ine contracep tive device;Pr actice ID: 0001 Adelaida Cleary [facility] 14:42:53 Pregnanc y test negative [id number] Completed 201709/29/2020 Encounter for test, result negative; Practice ID: [id number] Adelaida marion [facility] 1 14:42:54 Problem Notes None recorded. Procedures Surgical History Date Name Laterality Status Provider Name and Address Organization Details Recorded Time 1 Date of Last Pap Smear completed [facility] 10/07/2020 10:45:13 1 Date of Last Mammogram completed [facility] 10/07/2020 10:44:47 Imaging Results None recorded. Procedure Notes None recorded. Medical Equipment None Reported. Allergies No known drug allergies Medications Name Sig Start Date Stop Date Status Note LastModified by Organization Details LastModified Time Mirena 21 mcg/24 hr (up to 8 years) 52 mg intrauterin e device Take by intrauter ine route. active Not Available Not Available No t Available buspirone 5 mg tablet PLEASE SEE ATTACHED FOR DETAILED DIRECTION S 10/24 completed Not Available Not Available Not Available meloxicam 15 mg tablet TAKE 1 TABLET BY MOUTH EVERY DAY 05/31 completed Not Available Not Available Not Available prednisone 20 mg tablet TAKE 1 TABLET BY MOUTH DAILY 10/24 completed Not Available Not Available Not Available fluorouraci l 5 % topical cream APPLY TWICE A DAY FOR 3 WEEKS TO FOREHEAD AND NOSE 10/24 completed Not Available Not Available Not Available ciprofloxac in 500 mg tablet 12/28 completed Not Available Not Available Not Available benzonatate 100 mg capsule TAKE 1 CAPSULE BY MOUTH THREE TIMES DAILY NEEDED FOR COUGH 10/24 completed Not Available Not Available Not Available simvastatin 20 mg tablet TAKE 1 TABLET BY MOUTH EVERY DAY active Not Available Not Available No t Available montelukast 10 mg tablet TAKE 1 TABLET BY MOUTH EVERY DAY NEEDED FOR SEASONAL ALLERGIES 10/24 completed Not Available Not Available Not Available fluticasone propionate 50 mcg/actuati on nasal spray,suspe nsion SHAKE LIQUID AND USE 2 SPRAYS IN EACH NOSTRIL DAILY 10/24 completed Not Available Not Available Not Available escitalopra m 10 mg tablet TAKE 1 TABLET BY MOUTH EVERY DAY 05/31 completed Not Available Not Available Not Available cyclobenzap rine 5 mg tablet TAKE 1 TABLET BY MOUTH TWICE A DAY NEEDED FOR MUSCLE SPASM 05/31 completed Not Available Not Available Not Available meloxicam 10/07 completed Not Available Not Available Not Available calcium active Not Available Not Avail able Not Available Ione 3 active Not Available Not Avail able Not Available multivitami n active Not Available Not Available Not Available B12 active Not Available Not Availa ble Not Available Soolantra 1 % topical cream APPLY TO FACE 2 TIMES A DAY 10/24 completed Not Available Not Available Not Available Vitals Date Recorded Systolic And Diastolic Provider Name and Address Organization Details Last Updated DateTime 05/31/2022 130/80 mm[Hg] Lizbeth Wetzel, [facility]- [address], [place], [address], [facility] 05/31/2022 17:26:35 Date Recorded Body weight Provider Name an d Address Organization Details Last Updated DateTime 05/31/2022 53107.68 g [facility] 05/31/2022 17:19:40 Date Recorded Body height Body mass index (BMI) Body weight Systolic And Diastolic Provider Name and Address Organization Details Last Updated DateTime 09/16/2019 1996.44 cm 0.2 kg/m2 84381.93 g 116/77 mm[Hg] Kallie Guillen [facility] 09/16/2019 14:55:40 Date Recorded Body height Body mass index (BMI) Body weight Systolic And Diastolic Provider Name and Address Organization Details Last Updated DateTime 10/07/2020 162.56 cm 27.6 kg/m2 00255.37 g 117/80 mm[Hg] Adelaida Cleary [facility] 10/07/2020 10:44:40 Date Recorded Body weight Systolic And Diastolic Provider Name and Address Organization Details Last Updated DateTime 10/25/2023 83828.82 g 126/79 mm[Hg] Adelaida Clement [facility] 10/25/2023 10:14:13 Date Recorded Body mass index (BMI) Body weight Systolic And Diastolic Provider Name and Address Organization Details Last Updated DateTime 12/29/2019 0.2 kg/m2 96701.7 g 124/82 mm[Hg] Kallie Guillen [facility] 12/29/2019 15:54:36 Social History Question Answer Notes LastModified by Organizat ion Details LastModified Time Tobacco Smoking Status Never Smoker Adelaida Clement sanam [facility] 05/31/2022 17:19:50 Do You Have An Advance Directive? No Information n ot available 10/07/2020 How Many Years Have You Consumed Alcohol? 30 Information not available 10/07/2020 Are You Blind Or Do You Have Difficulty Seeing? No Information n ot available 09/29/2020 What Is Your Level Of Caffeine Consumption? Occasional Information not available 09/29/2020 How Much Tobacco Do You Chew? None Information not available 05/31/2022 In The 14 Days Before Symptom Onset, Have You Had Close Contact With A Laboratory-confirm ed COVID-19 While That Case Was Ill? No Information n ot available 10/07/2020 In The 14 Days Before Symptom Onset, Have You Had Close Contact With A Person Who Is Under Investigation For COVID-19 While That Person Was Ill? No Information not available 10/07/2020 Have You Been To An Area Known To Be High Risk For COVID-19? No Information not available 10/07/2020 Are You Deaf Or Do You Have Serious Difficulty Hearing? No Information not available 09/29/2020 What Type Of Diet Are You Following? REGULAR Information n ot available 09/29/2020 What Is The Highest Grade Or Level Of School You Have Completed Or The Highest Degree You Have Received? [id number] Information not available 10/07/2020 Are There Any Guns Present In Your Home? Yes Information not available 10/07/2020 Do You Use Protection During Sex? Always Information not available 10/07/2020 Do You Use Your Seat Belt Or Car Seat Routinely? Yes Information not available 09/29/2020 Do You Have Smoke And Carbon Monoxide Detectors In Your Home? Yes Information not available 09/29/2020 How Much Tobacco Do You Smoke? No Information not available 10/07/2020 Do You Use Sunscreen Routinely? Yes Information not available 09/29/2020 Have You Used IV Drugs? No Information not available 10/07/2020 Do You Have Difficulty Walking Or Climbing Stairs? No Information not available 05/31/2022 Sex: Unknown Functional Status Question Answer Note LastModified by Organizat ion Details LastModified Time Do you use any illicit or recreational drugs? No Information not available 09/29/2020 What is your level of alcohol consumption? Occasional Information not available 09/29/2020 Are you able to walk independently without assistance or assistive devices? YESWOREST Information not available 09/29/2020 Are you able to care for yourself independently? 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 No Information not available 05/31/2022 What is your exercise level? Moderate Information not available 10/07/2020 Mental Status Question Answer Note LastModified by Organization D etails LastModified Time Do you feel stressed (tense, restless, nervous, or anxious, or unable to sleep at night)? [id number] Information not available 05/31/2022 Family History Relationship Description Onset Age of this Age Resolved Age Notes LastModified by Organization Details LastModified Time Father Disorder of cardiovascul ar system [email or web address] Not available 2019 14:51:22 Mother Disorder of cardiovascul ar system [email or web address] Not available 2019 14:51:22 Medical History Condition Response Allergies (Food, seasonal, environmental ) N Other N Breast Cancer N Drug/Latex Allergies/Reactions N Blood Transfusion N Dermatologic Disorders N Lung Disease N Defects or Inherited Disease N Breast Problem N Gestational Diabetes N Hematologic disorders N Anesthesia Complications N History of STI N Deep Vein Thrombosis N Polycystic ovary syndrome N Anxiety Disorder N Autoimmune disease N Arthritis N Infertility N Polyps N Acid Reflux (GERD) N History of abnormal pap N Cancer N Stroke N Varicosities N Neurologic/Epilepsy N Endometriosis N High Cholesterol N Headaches N Fibromyalgia N Kidney Disease N Heart Problems N Kidney or Bladder Problems N Thyroid Problems N GI Problems N Eating Disorder N Anemia N Art (IVF or FET) N Psychiatric Illness N Ovarian Cancer N Diabetes N Pulmonary (TB, Asthma) N Hepatitis/Liver Disease N No Past Medical History N Eczema N Urinary Tract Infection N Abuse/Domestic Violence N Asthma N Trauma/Violence N Depression/ depression N Heart Disease N Pre-Eclampsia N Hypertension N Osteoporosis N Thrombophilias N Gynecological History Statement/Question Response Abnormal Pap Y Date of Last Mammogram 10/04/2020 Date of LMP 04/09/2000 On BCP's at Conception? N N STIs/STDs N HPV Vaccine N Current Control Method IUD Age at First Child 28 Sexually Active? Y IUD Menses Monthly N Age of first menstrual cycle 12 Date of Last Pap Smear 10/07/2020 Sexual Problems? N Desired Control Method IUD LMP Unknown N Obstetrics History GPAL:G 2 P 2 0 0 2 Type Value Full Term 2 Living 2 Total 2 Past Encounters Encounter ID Performer Location Encounter Start Date Encounter Closed Date Diagnosis/Indication Diagnosis SNOMED-CT Code Diagnosis ICD10 Code Diagnosis IMO Codes Diagnosis Note [id number] [facility] [address] [address] 09/16/2019 14:45:19 09/16/2019 15:57:34 Gynecologic examination [id number] Z01.419 Suggested Calcium with Vitamin D 1200-1500m g daily. Patient advised to get an annual flu shot in the fall and she could obtain at [facility] or [facility]. Also to obtain TDap vaccinatio n if you have not had one in the last 10 years. Recommend yearly mammograms . Encouraged monthly self breast exams. Encourage safe sexual practices, to use condoms and limit partners if not already in a monogamous relationsh ip. Engage in daily exercise of low impact aerobic exercise 45-60 minutes 4-5 times weekly. Avoid tobacco and illicit drugs as well as using moderation with alcohol intake less than 1-2 8 oz beverages daily. This lifestyle behavior pattern will lead to less health conditions and longer life span. If BMI greater than 25 weight watchers or dietary consult advised. All questions have been answered. Patient appears to understand informatio n, but if you have any questions please call or respond to this email. Pap udpated STD declined Mammo ordered IUD placed 09/07/2017 Dary Lizbeth Wetzel [facility] [address] [address] 12/29/2019 15:33:43 12/29/2019 17:09:45 Pain in pelvis [id number] R10.2 Exam is wnl today with IUD strings visualized . We agreed to monitor. If instance occurs again call to schedule US & visit. Patient is to contact office or go to nearest ED/Urgent care if fever >/= 100.1, pain, excessive bleeding, unusual drainage or swelling in area of concern; or experienci ng worsening sx's or new onset of concerning sx's. Understand ing verbalized . All questions answered to patient satisfacti on. Time spent in visit is a total of 15 mins with at least 50% of visit consisting of counseling and review of plan of care. [id number] Lizbeth Wetzel , [facility] [address] [address] 10/07/2020 10:21:58 10/07/2020 11:18:51 Gynecologic examination [id number] Z01.419 Suggested Calcium with Vitamin D 1200-1500m g daily. Patient advised to get an annual flu shot in the fall and she could obtain at [facility] or [facility] care clinic. Also to obtain TDap vaccinatio n if you have not had one in the last 10 years. Recommend yearly mammograms . Encouraged monthly self breast exams. Encourage safe sexual practices, to use condoms and limit partners if not already in a monogamous relationsh ip. Engage in daily exercise of low impact aerobic exercise 45-60 minutes 4-5 times weekly. Avoid tobacco and illicit drugs as well as using moderation with alcohol intake less than 1-2 8 oz beverages daily. This lifestyle behavior pattern will lead to less health conditions and longer life span. If BMI greater than 25 weight watchers or dietary consult advised. All questions have been answered. Patient appears to understand informatio n, but if you have any questions please call or respond to this email. Colon Scheduled 2020 by PCPPap/hpv udpated STD declined Mammo done. Had abn mammo this year.Sched uled end of October [facility] for additional imaging & possible bx; she wondered if anywhere else could get her in sooner. Will have mammo results sent here & we can contact rory/SHELLEY Silva to see if this testing can be done sooner. IUD placed 09/07/2017 Mirena [id number] [facility] [address] [address] 05/31/2022 17:12:19 05/31/2022 17:39:56 Gynecologic examination [id number] Z01.419 Z11.51 Suggested Calcium with Vitamin D 1200-1500m g daily. Patient advised to get an annual flu shot in the fall and she could obtain at [facility] or [facility] clinic. Also to obtain TDap vaccinatio n if you have not had one in the last 10 years. Recommend yearly mammograms . Encouraged monthly self breast exams. Encourage safe sexual practices, to use condoms and limit partners if not already in a monogamous relationsh ip. Engage in daily exercise of low impact aerobic exercise 45-60 minutes 4-5 times weekly. Avoid tobacco and illicit drugs as well as using moderation with alcohol intake less than 1-2 8 oz beverages daily. This lifestyle behavior pattern will lead to less health conditions and longer life span. If BMI greater than 25 weight watchers or dietary consult advised. All questions have been answered. Patient appears to understand informatio n, but if you have any questions please call or respond to this email. Pap/hpv sent STD Screen declined Genetic Screen discussed Colon Screen UTD PCP Dexa Screen na Routine Labs PCPMammo ordered Screening for malignant neoplasm of breast [id number] Z12.31 [id number] Mari Yeh [facility] [place] [address] [address] 10/25/2023 09:55:50 10/25/2023 10:56:57 Gynecologic examination [id number] Z01.419 [facility] - Mirena IUD, inserted 09/07/2017 (will 09/07/2025)p ap updated per pt preference STI screen declinedma mmogram order givencolon oscopy UTDroutine labs UTD/PCP Do monthly self breast exams. It is advised to get annual flu shot in the fall and she could obtain at local pharmacy. If you haven't received the Tdap vaccine in the last 10 years you should obtain one as well. Have mammogram yearly and stay up to date on colon cancer screening. Engage in regular exercise. Avoid tobacco and illicit drugs. This lifestyle behavior pattern will lead to less health conditions and longer life span. If BMI greater than 25 dietary consult advised. Questions have been answered. Patient appears to understand instructio ns, but if you have any further questions call or respond to this email Screening for malignant neoplasm of breast [id number] Z12.39 Health Concerns Section Related Observation LastModified by Organization Detai ls LastModified Time None Recorded Concern Status LastModified by Organization Details LastModified Time None Recorded Advance Directives Directive N: Payers Insurance Date Sequence Insurance Name Policy Number Policy Lew Covered Member ID Lew Member ID Guarantor Name 10/29/2023 1 [facility] [id number] Jaja Pleayo [id number] Jaja Pelayo Notes Date Note Type Note Provider Name and Address Organization Details Recorded Time 09/16/19 20 text/ht ml Annual GYNReported by PatientHistoryFor history, patient reportsno gynecologic complaints.Genitourinary symptomsFor menstrual cycle, patient reportsnormal menses. For urinary symptoms, patient reportsno hematuriaandno incontinence. For vulva, patient reportsno genital lesion. For vagina, patient reportsnormal vaginal discharge.Breast symptomsFor breast, patient reportsno breast pain,no breast lump, andno nipple discharge.ContraceptionFor current contraception, patient reportssatisfied with current contraceptionandintrauterine device (iud).Endocrine symptomsFor sexual complaints, patient reportsno sexual complaints,no pain during intercourse, andnormal libido. For menopausal symptoms, patient reportsno menopausal symptomsandnormal vaginal lubrication.Psychological symptomsFor psychological symptoms, patient reportsno depression,no anxiety, andno pmdd.Preventative measuresFor preventive measures, patient reportsencourage self breast examination,encourage regular exercise,encourage no tobacco use,encourage regular mammograms starting age 40, andneeds to schedule mammogram. Lizbeth Wetzel, [facility]- [address], [place], [address], [facility] 09/16/2019 15:29:59 12/29/19 20 text/ht ml ROS as noted in the HPI Patient is a 49yo white female here today for recent episode of pelvic pain. 2mos ago she started having pain in left lower quadrant. Went to urgent care. Neg UTI. This pain has since resolved. She is feeling fine today. Wanted to be evaluated just to make sure everything is ok. Has Mirean IUD 2018 neg urinary/vaginal/GI issues. Lizbeth Wetzel [facility] [address], [place], [address], [facility] 12/29/2019 16:43:51 10/08/19 21 text/ht ml Annual GYNReported by PatientHistoryFor history, patient reportsno gynecologic complaints.Genitourinary symptomsFor urinary symptoms, patient reportsno hematuriaandno incontinence. For vulva, patient reportsno genital lesion. For vagina, patient reportsnormal vaginal discharge. For menstrual cycle, (amenorrheic on iud mirena).Breast symptomsFor breast, patient reportsno breast pain,no breast lump, andno nipple discharge.ContraceptionFor current contraception, patient reportssatisfied with current contraceptionandintrauterine device (iud).Endocrine symptomsFor sexual complaints, patient reportsno sexual complaints,no pain during intercourse, andnormal libido. For menopausal symptoms, patient reportsno menopausal symptomsandnormal vaginal lubrication.Psychological symptomsFor psychological symptoms, patient reportsno depression,no anxiety, andno pmdd.Preventative measuresFor preventive measures, patient reportsencourage self breast examination,encourage regular exercise,encourage no tobacco use,encourage regular mammograms starting age 40,mammogram performed within the past year, andneeds to schedule colonoscopy (scheduled by pcp). Lizbeth Wetzel [facility] [address], [place], [address], [facility] 10/07/2020 11:08:59 05/31/19 23 text/ht ml Annual GYNReported by PatientHistoryFor history, patient reportsno gynecologic complaints.Genitourinary symptomsFor menstrual cycle, patient reportsnormal menses (amenorrheic on iud). For urinary symptoms, patient reportsno hematuriaandno incontinence. For vulva, patient reportsno genital lesion. For vagina, patient reportsnormal vaginal discharge.Breast symptomsFor breast, patient reportsno breast pain,no breast lump, andno nipple discharge.ContraceptionFor current contraception, patient reportssatisfied with current contraceptionandintrauterine device (iud).Endocrine symptomsFor sexual complaints, patient reportsno sexual complaints,no pain during intercourse, andnormal libido. For menopausal symptoms, patient reportsno menopausal symptomsandnormal vaginal lubrication.Psychological symptomsFor psychological symptoms, patient reportsno depression,no anxiety, andno pmdd.Preventative measuresFor preventive measures, patient reportsencourage self breast examination,encourage regular exercise,encourage no tobacco use,encourage regular mammograms starting age 40,followed with yearly pap smears,needs to schedule mammogram, andup to date on colonoscopy screening. Lizbeth Wetzel, KELLIE- [address], [place], [address], [facility] 05/31/2022 17:31:29 10/25/19 24 text/ht ml Annual GYNReported by PatientGenitourinary symptomsFor menstrual cycle, patient reportsnormal menses. For urinary symptoms, patient reportsno hematuriaandno incontinence. For vulva, patient reportsno genital lesion. For vagina, patient reportsnormal vaginal discharge.Breast symptomsFor breast, patient reportsno breast pain,no breast lump, andno nipple discharge.ContraceptionFor current contraception, patient reportssatisfied with current contraceptionandintrauterine device (iud).Endocrine symptomsFor sexual complaints, patient reportsno sexual complaints,no pain during intercourse, andnormal libido. For menopausal symptoms, patient reportsno menopausal symptomsandnormal vaginal lubrication.Psychological symptomsFor psychological symptoms, patient reportsno depression,no anxiety, andno pmdd.Preventative measuresFor preventive measures, patient reportsencourage self breast examination,encourage regular exercise,encourage no tobacco use, andencourage regular mammograms starting age 40.53yo EB - Mirena IUD, inserted 09/07/2017 (will 09/07/2025)last pap 05/2022 : nilm, HPV (-)mammogram - scheduled for olonoscopy UTD 03/2023routine labs UTD/PCP KELLIE Vargas [address], [place], [address], [facility] 10/25/2023 10:56:28 OBGyn Episode Ob Episode Information Episode Created Date Number of Fetuses Patient Bloodtype Patient rh Status Prepregnancy Weight lbs Domestic Partner Domestic Partner Phone Father Name Car Salesperson Status 09/16/19 20 1 CLOSED Fetus Data First Name Last Name Admitted to NICU Weight (g) Sex Living Outcome Pediatric Complications Fetus ID Race Codes Race Delivery Type [id number] Hoang Calculation Initial Hoang Date Initial Exam Date Initial Exam Provider Initial Ultrasound Date Last Menstrual Period Date Ultra Sound Weeks Gestation 0 Eighteen To Twenty Week Hoang Update Ultra Sound Date Fundal Height At Umbil Quickening Date Ultra Sound Latest Weeks Gestation Final Hoang Confirmed By Final Hoang Confirmed Date Final Hoang Date Ultra Sound Latest Days Gestation 0 0 Menstrual History Last Menstrual Date Menses Monthly On Bcp Conception Prior Menses Frequency Hcg Plus Date Menarche Onset Age Delivery Information Delivery Date Delivery Type Labor Anesthesia Weeks Gestation Incision Type Labor Labor Length Hrs Delivered By Post Complications Tubal Sterilization Discharge Date Comments 9 Discharge Information Feeding Method Contraceptive Method Maternal HG B and HCT Levels Ob Episode Information Episode Created Date Number of Fetuses Patient Bloodtype Patient rh Status Prepregnancy Weight lbs Domestic Partner Domestic Partner Phone Father Name Car Salesperson Status 09/16/19 20 1 CLOSED Fetus Data First Name Last Name Admitted to NICU Weight (g) Sex Living Outcome Pediatric Complications Fetus ID Race Codes Race Delivery Type 2111 Hoang Calculation Initial Hoang Date Initial Exam Date Initial Exam Provider Initial Ultrasound Date Last Menstrual Period Date Ultra Sound Weeks Gestation 0 Eighteen To Twenty Week Hoang Update Ultra Sound Date Fundal Height At Umbil Quickening Date Ultra Sound Latest Weeks Gestation Final Hoang Confirmed By Final Hoang Confirmed Date Final Hoang Date Ultra Sound Latest Days Gestation 0 0 Menstrual History Last Menstrual Date Menses Monthly On Bcp Conception Prior Menses Frequency Hcg Plus Date Menarche Onset Age Delivery Information Delivery Date Delivery Type Labor Anesthesia Weeks Gestation Incision Type Labor Labor Length Hrs Delivered By Post Complications Tubal Sterilization Discharge Date Comments 1 Discharge Information Feeding Method Contraceptive Method Maternal HG B and HCT Levels
--- OUTSIDE RECORDS SUMMARY | 2025-02-19 15:58 | XMS_ITS | Patient Health Record ---
Author Organization [facility] Address [address] [place], [place] [id number] Care Team Providers Care Project Scientist Name Role Phone GEMINI CHARY Unavailable [phone] Иван Oh Unavailable Unavailable Allergies No Known Allergies Reason For Referral [...] Control (Standard) Tobacco use: Nonsmoker Vital Signs Height-cm 165.1 cm 08/13/2024 Weight-kg 71.21 kg 08/13/2024 Height 65 in 08/13/2024 Weight 157 lbs 08/13/2024 BMI 26.12 kg/m2 08/13/2024 Encounters Encounter Location Date Provider Diagnosis [facility] [address] [place], [place] [id number] 08/13/2024 CHARY SINGLETARY Nondisplaced fracture of first metatarsal bone, right foot, initial encounter for closed fracture S92.314A ; Hallux valgus (acquired), right foot M20.11 and Pain in right foot M79.671 Assessments Encounter Date Diagnosis (ICD Code) Assessment Notes Treatment Notes Treatment Clinical Notes Section Notes 08/13/2024 Hallux valgus (acquired), right foot (ICD-10 - M20.11) Bunion: Discussed various treatments with the patient regarding hallux abducto valgus deformity. Discussed conservative care consisting of padding, wider shoes, anti-inflammator ies, and orthotics. Discussed surgical treatment options as well. Reviewed xrays. 08/13/2024 Nondisplaced fracture of first metatarsal bone, [...] pain and inflammation is not resolving. 08/13/2024 Pain in right foot (ICD-10 - M79.671) CERON Protect, Rest, Ice, Compress, Elevate 3-6 weeks Patient was instructed to try an OTC topical pain reliever/anti-in flammatory such as Voltaren Gel, Aspercreme with Lidocaine, or Biofreeze etc over the affected areas. Spot test on hand or somewhere visible prior to starting to watch for possible rash/allergic reaction Plan Of Treatment No Information Insurance Providers Payer Name Payer Address Payer Phone Subscriber Number Group Number Insured Name Patient Relationship to Insured Coverage Start Date Coverage End Date [facility] [address] [address] [place] [address] [id number] Jaja Pelayo Self - patient is the insured Medical (General) History Medical History History ICD Code Arthritis
== END 2025-02-19 15:55 | disposition home or self-care (01) ==
LOC: ANHFOHIMG 15:55
PROVIDERS: PCP Nurse Practitioner Family; Visit Provider Family Medicine
DX: Z12.31 Encounter for screening mammogram for malignant neoplasm of breast (principal)
CPT/HCPCS: 77063; 77067

== ENCOUNTER 2025-03-17 07:52 | Outpatient (CLI) | payer OTHER, SELFPAY ==
--- NOTE | ~2025-03-17 | MR_ITS ---
EXAM/PROCEDURE: MR pelvis wo con HISTORY: lbp COMPARISON: None available. TECHNIQUE: Noncontrast enhanced pelvic MRI performed. FINDINGS: Moderately extensive edematous changes present along the posterior margin of the trochanteric region of the hip with nonvisualization of the insertion of the quadratus muscle and possible retraction of the tendon on images 6 and 7 of series 3. The ischiofemoral ligament in this area is also p oorly seen. No fracture subluxation or dislocation. Mild hyperintense T2-weighted signal also present in the obturator externus muscle, and in the adjacent portion of the adductor tyron muscle but no clear disruption seen in the structures. A 3.3 x 3.3 x 2.3 cm nonexpansile posterior right acetabular mass demonstrating fat suppression on T2-weighted sequences consistent with benign lipomatous mass noted. IMPRESSION: 1. High-grade, possible complete tear of the quadratus muscle with mild strain possibly present involving the obturator externus, and proximal portion of the adductor tyron muscle. Injury involving the ischiofemoral ligament may also be present. 2. A 3.3 cm nonexpansile lipomatous appearing mass in the posterior bony acetabulum with no evidence of expansile effect or cortical disruption. Reviewed, dictated and finalized at location A. ICAL PHLEBOTOMIST IMPRESSION: 1. High-grade, possible complete tear of the quadratus muscle with mild strain possibly present involving the obturator externus, and proximal portion of the adductor tyron muscle. Injury involving the ischiofemoral ligament may also be present. 2. A 3.3 cm nonexpansile lipomatous appearing mass in the posterior bony acetab ulum with no evidence of expansile effect or cortical disruption.
== END 2025-03-17 07:53 | disposition home or self-care (01) ==
PROVIDERS: PCP Nurse Practitioner Family; Visit Provider Orthopaedic Surgery Orthopaedic Surgery of the Spine
DX: M54.16 Radiculopathy, lumbar region (principal); M54.42 Lumbago with sciatica, left side; G89.29 Other chronic pain; R19.09 Other intra-abdominal and pelvic swelling, mass and lump
CPT/HCPCS: 72195